=== PATIENT | female | born 1955 | race Caucasian/White ===

== ENCOUNTER → 2020-01-12 14:20 | Outpatient (BNVA) | payer OTHER, SELFPAY | PROVIDERS: Family Provider Family Medicine; Visit Provider Nurse Practitioner Family | DX: J06.9 Acute upper respiratory infection, unspecified (principal); R68.83 Chills (without fever); Z11.59 Encounter for screening for other viral diseases | CPT/HCPCS: 87635 ==

== ENCOUNTER 2021-02-19 14:22 | Emergency (ER) | payer MEDICARE, SELFPAY ==
[2021-02-19 15:43] VITALS: BP 115/75; PULSE 62; RESP 18; TEMP 36.8; O2SAT 96; BMI 29.2
--- NOTE | 2021-02-19 17:26 | XRR_ITS ---
PROCEDURE INFORMATION: Exam: XR Chest Exam date and time: 02/19/2021 5:26 PM Age: 65 years old Clinical indication: Cough; Additional info: Dyspnea TECHNIQUE: Imaging protocol: XR of the chest. Views: 1 view. COMPARISON: CR Chest 2 views* [id number] 02/11/2017 7:18 PM FINDINGS: Lungs: Unremarkable. No consolidation. Pleural spaces: Unremarkable. No pleural effusion. No pneumothorax. Heart/Mediastinum: Unremarkable. No cardiomegaly. Bones/joints: Unremarkable. XR/XR chest 1V portable [id number] IMPRESSION: No acute findings.
--- NOTE | 2021-02-19 19:04 | ED_ITS ---
HPI - URI/Sore Throat General: Chief Complaint: Upper Respiratory Infection Stated Complaint: TROUBLE BREATHING Time Seen by Provider: 02/19/21 18:11 History of Present Illness: HPI Narrative: 65-year-old female presents with shortness of breath and nonproductive cough for 3 days. Denies any chest pain. Denies lower extremity pain or swelling. Denies nausea or vomiting. Denies fevers or chills. Denies sick contacts. States that she does not have history of any respiratory problems or asthma or COPD. Review of Systems Narrative: - CONSTITUTIONAL: Denies weight loss, fever and chills. - HEENT: Denies changes in vision and hearing. - RESPIRATORY: As above - CV: Denies palpitations and CP. - GI: Denies abdominal pain, nausea, vomiting and diarrhea. - : Denies dysuria and urinary frequency. - MSK: Denies myalgia and joint pain. - SKIN: Denies rash and pruritus. - NEUROLOGICAL: Denies headache, weakness, numbness and syncope. - PSYCHIATRIC: Denies suicidal ideation Physical Exam Narrative: EXAM NARRATIVE: - GENERAL: Alert and oriented x 3. No acute distress. Well-nourished. - EYES: EOMI. Anicteric. - HENT: Atraumatic, no C-spine tenderness. Moist mucous membranes. No scleral icterus. No cervical lymphadenopathy. - LUNGS: Bilateral wheezing - CARDIOVASCULAR: Regular rate and rhythm. No murmur. No JVD. - ABDOMEN: Soft, non-tender and non-distended. Negative CVA tenderness bilaterally, no rebound or guarding, negative Mitchell sign. No palpable masses. - EXTREMITIES: No edema. Non-tender. - SKIN: No rashes or lesions. Warm. - NEUROLOGIC: No meningismus or focal neurological deficits. CN II-XII grossly intact. - PSYCHIATRIC: Cooperative. Appropriate mood and affect. Course Vital Signs: Vital signs: Vital Signs Temperature 98.2 F 02/19/21 15:43 Pulse Rate 78 02/19/21 21:28 Respiratory Rate 19 H 02/19/21 21:28 Blood Pressure 135/77 02/19/21 21:28 Pulse Oximetry 98 02/19/21 21:28 MDM - URI/Sore Throat MDM Narrative: Medical decision making narrative: 65-year-old presents with shortness of breath and cough. Physical exam does reveal some wheezing. EKG and troponin reticulocyte acute ischemia or other acute abnormality. D-dimer is elevated but CT does not reveal signs of PE. Otherwise lab work is unremarkable. She is hemodynamically stable afebrile nontoxic-appearing. Saturating well on room air. Patient is not a smoker and does not have a history of asthma. Clinically this is consistent with viral bronchitis. Prescription for prednisone albuterol provided. Incidentally there was also a pulmonary nodule for which outpatient follow-up was recommended this was communicated to the patient. At this time I believe patient would be safe for discharge and outpatient follow-up. Return precautions provided. Plan was reviewed with the patient who expressed understanding. Questions answered. Patient will follow up with PCP. Patient discharged in stable condition. Lab Data: Labs: Lab Results 02/19/21 02/19/21 02/19/21 19:20 19:20 19:30 WBC 5.8 10^3/uL 10^3/ uL (4.0-10.0) RBC 4.80 10^6/uL 10^6 /uL (4.1-5.3) Hgb 13.8 g/dL g/dL (11.5-15.3) Hct 44.2 % % (37.0-47.0) MCV 92.1 fl fl (81-99) MCH 28.8 pg pg (28.0-34.0) MCHC 31.2 g/dL g/dL (30.0-36.0) RDW 13.2 % % (12.1-15.1) Plt Count 253 10^3/cmm 10^3 /cmm (130-400) MPV 9.2 fL fL (7.4-10.4) Neut % (Auto) 72.8 % % Lymph % (Auto) 16.1 % % Hodgeman % (Auto) 7.5 % % Eos % (Auto) 2.9 % % Baso % (Auto) 0.5 % % Neut # (Auto) 4.24 10^3/uL 10^3 /uL (1.8-7.7) Lymph # (Auto) 0.9 10^3/uL 10^3/ uL (0.8-4.8) Hodgeman # (Auto) 0.4 10^3/uL 10^3/ uL (0.2-0.9) Eos # (Auto) 0.2 10^3/uL 10^3/ uL (0.0-0.8) Baso # (Auto) 0.0 10^3/uL 10^3/ uL (0.0-0.1) Nucleated RBC % (a uto) 0 % % Nucleated RBCs # 0.0 /100WBC /100W BC PT INR APTT D-Dimer Sodium Potassium Chloride Carbon Dioxide Anion Gap BUN Creatinine GFR Calculation Glucose Calculated Osmolal ity Calcium Total Bilirubin AST ALT Alkaline Phosphata se Troponin T Baselin e NT-Pro-B Natriuret Pep Total Protein Albumin Globulin Influenza Type A A g Negative (Negative) Influenza Type B A g Negative (Negative) SARS-CoV-2 Ag (Rap id) Negative (Negative) 02/19/21 02/19/21 02/19/21 19:30 19:30 19:30 WBC RBC Hgb Hct MCV MCH MCHC RDW Plt Count MPV Neut % (Auto) Lymph % (Auto) Hodgeman % (Auto) Eos % (Auto) Baso % (Auto) Neut # (Auto) Lymph # (Auto) Hodgeman # (Auto) Eos # (Auto) Baso # (Auto) Nucleated RBC % (a uto) Nucleated RBCs # PT 12.60 SECONDS SEC ONDS (12.1-14.9) INR 0.92 (0.8-1.2) APTT 30.3 SECONDS SECO NDS (23.9-36.7) D-Dimer 0.82 ug/mIFEU H u g/mIFEU (0-0.59) Sodium 140 mmol/L mmol/L (136-145) Potassium 4.1 mmol/L mmol/L (3.5-5.1) Chloride 102 mmol/L mmol/L (98-107) Carbon Dioxide 25 mmol/L mmol/L (22-29) Anion Gap 17.1 (5-19) BUN 9 mg/dL mg/dL (8-23) Creatinine 0.5 mg/dL mg/dL (0.5-0.9) GFR Calculation 123.8 mL/min mL/m in (90-130) Glucose 81 mg/dL mg/dL (65-115) Calculated Osmolal ity 288 mOsm/kg mOsm/ kg (285-295) Calcium 8.9 mg/dL mg/dL (8.5-10.5) Total Bilirubin 0.3 mg/dL mg/dL (0.15-1.2) AST 25 U/L U/L (0-32) ALT 23 U/L U/L (0-33) Alkaline Phosphata se 119 IU/L H IU/L (35-105) Troponin T Baselin e 6 ng/L ng/L (0-10) NT-Pro-B Natriuret Pep 75 pg/mL pg/mL (0-125) Total Protein 8.0 g/dL g/dL (6.6-8.7) Albumin 4.4 g/dL g/dL (3.5-5.2) Globulin 3.6 g/dL g/dL (1.3-4.6) Influenza Type A A g Influenza Type B A g SARS-CoV-2 Ag (Rap id) EKG Data^: EKG 1: Other EKG comments: Sinus bradycardia, rate of 56, incomplete right bundle branch block, no sign of acute ischemia or other acute abnormality. Coding Level of Care Code ED Supervisor Drying for Alpag Chayo
--- NOTE | 2021-02-19 19:06 | PC.NURSE ---
Report from FLORIAN Peralta
--- NOTE | 2021-02-19 19:08 | ECG_ITS ---
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 [employer]: : 1955 Requested By: Santana Handley Order Number: [id number] Reading MD: EMERSON WILLIAM Measurements Intervals [place] Rate: 56 P: 53 [place]: 184 QRS: -6 QRSD: 94 T: 25 QT: 432 QTc: 420 Interpretive Statements SINUS BRADYCARDIA INCOMPLETE RIGHT BUNDLE BRANCH BLOCK [90+ ms QRS DURATION, TERMINAL R IN V1/V2, 40+ ms S IN I/aVL/V4/V5/V6] NONSPECIFIC ST & T-WAVE ABNORMALITY No previous ECG available for comparison Electronically Signed On 02-20-2021 20:03:13 CDT by EMERSON WILLIAM [id number]
[2021-02-19 19:36] VITALS: BP 119/80; PULSE 66; RESP 19; O2SAT 94
[2021-02-19 19:51] LABS: Influenza A by IFA Negative (Negative); Influenza B by IFA Negative (Negative); SARS Covid-2 Antigen Negative (Negative)
[2021-02-19 19:53] LABS: Basophils % 0.5 %; Eosinophils # 0.2 10^3/uL (0.0-0.8); Eosinophils % 2.9 %; Hematocrit 44.2 % (37.0-47.0); Hemoglobin 13.8 g/dL (11.5-15.3); Lymphocytes # 0.9 10^3/uL (0.8-4.8); Lymphocytes % 16.1 %; Mean Corpuscular HGB Conc 31.2 g/dL (30.0-36.0); Mean Corpuscular Hemoglobin 28.8 pg (28.0-34.0); Mean Corpuscular Volume 92.1 fl (81-99); Mean Platelet Volume 9.2 fL (7.4-10.4); Monocytes # 0.4 10^3/uL (0.2-0.9); Monocytes % 7.5 %; Neutrophils # 4.24 10^3/uL (1.8-7.7); Neutrophils % 72.8 %; Nucleated Red Blood Cells % 0 %; Platelet Count 253 10^3/cmm (130-400); Red Cell Distribution Width 13.2 % (12.1-15.1); White Blood Count 5.8 10^3/uL (4.0-10.0)
[2021-02-19 20:02] LABS: INR 0.92 (0.8-1.2)
[2021-02-19 20:03] LABS: Partial Thromboplastin Time 30.3 SECONDS (23.9-36.7)
[2021-02-19 20:05] LABS: D Dimer 0.82 ug/mIFEU (0-0.59)
[2021-02-19 20:07] LABS: Troponin(5th) Baseline 6 ng/L (0-10)
--- NOTE | 2021-02-19 20:18 | CTR_ITS ---
PROCEDURE INFORMATION: Exam: CTA Chest With Contrast Exam date and time: 02/19/2021 8:18 PM Age: 65 years old Clinical indication: Shortness of breath; Additional info: Pe TECHNIQUE: Imaging protocol: Computed tomographic angiography of the chest with contrast. 3D rendering (Not supervised by radiologist): MIP and/or 3D reconstructed images were created by the technologist. Radiation optimization: All CT scans at this facility use at least one of these dose optimization techniques: automated exposure control; mA and/or kV adjustment per patient size (includes targeted exams where dose is matched to clinical indication); or iterative reconstruction. Contrast material: OMNI 350; Contrast volume: 65 ml; Contrast route: INTRAVENOUS (IV); COMPARISON: CR (CHEST, ) 02/19/2021 5:32 PM RADIATION DOSE METRICS: Total DLP (mGy-cm): 525.64 FINDINGS: Pulmonary arteries: There is no evidence of filling defects within the pulmonary arterial circulation to suggest pulmonary embolism. Aorta: There is no thoracic aortic aneurysm or dissection. Lungs: There is a solitary less than 6 mm sized subpleural pulmonary nodule in the right middle lobe on image number 3 of 6 of series 2 or 39 of series 3. For patients at low risk (minimal or absent history of smoking and of other known risk factors), recommend CT Chest at 6-12 months, then consider CT Chest at 18-24 months. For patients at high risk (history of smoking or of other known risk factors), recommend CT Chest at 6-12 months, then CT Chest at 18-24 months. (Reference: Jackson) Pleural spaces: Unremarkable. No pneumothorax. No pleural effusion. Heart: Unremarkable. No cardiomegaly. No pericardial effusion. Lymph nodes: There is mild bilateral hilar adenopathy with nodes measuring up to 10 x 12 mm and subcarinal adenopathy with nodes measuring up to 14 x 25 mm. There also some prominent paratracheal lymph nodes. 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 Soft tissues: Unremarkable. CT/CT angio chest PE protcl [id number] IMPRESSION: 1. Mild hilar and mediastinal adenopathy of uncertain significance 2. No evidence of pulmonary embolism. 3. No acute pulmonary infiltrate. 4. Solitary subpleural nodule in the right middle lobe. Follow-up according to Fleischner society guidelines suggested. REFERENCES: [place] Elkins et al. Guidelines for Management of Incidental Pulmonary Nodules Detected on CT Images: From the Fleischner Society 2017. Radiology. 2017;284(1):228-243. Radiation Dose CTDIVOL = (mGy): DLP = 525.64 (mGy-cm)
[2021-02-19 20:31] LABS: Alanine Aminotransferase 23 U/L (0-33); Albumin Level 4.4 g/dL (3.5-5.2); Alkaline Phosphatase 119 IU/L (35-105); Blood Urea Nitrogen 9 mg/dL (8-23); Calcium 8.9 mg/dL (8.5-10.5); Carbon Dioxide 25 mmol/L (22-29); Chloride 102 mmol/L (98-107); Creatinine Clr Calc Pharmacy 60.3363; Globulin 3.6 g/dL (1.3-4.6); Glomerular Filtration Rate 123.8 mL/min (90-130); Glucose 81 mg/dL (65-115); NT Pro B Type Natriuretic Pept 75 pg/mL (0-125); Osmolality Calculated 288 mOsm/kg (285-295); Sodium 140 mmol/L (136-145); Total Bilirubin 0.3 mg/dL (0.15-1.2)
[2021-02-19 20:40] LABS: Anion Gap 17.1 (5-19); Potassium 4.1 mmol/L (3.5-5.1)
[2021-02-19 20:41] LABS: Aspartate Amino Transferase 25 U/L (0-32)
[2021-02-19] MEDS: iohexol 350 mg/mL 100 mL Btl IV (21:02)
[2021-02-19] MEDS: ipratropium-albuterol 3 mL Neb INHALATION (21:18)
[2021-02-19 21:20] VITALS: PULSE 89; RESP 18; O2SAT 94
[2021-02-19 21:28] VITALS: BP 135/77; PULSE 78; RESP 19; O2SAT 98
--- NOTE | 2021-02-19 21:30 | PC.NURSE ---
Assisted onto bedside toilet. Able to ambulate from the bed with assistance, needs assistance due to weakness. AOx4. Urine sent to lab.
[2021-02-19 22:00] VITALS: BP 139/96; PULSE 84; RESP 20; O2SAT 97
[2021-02-19 22:07] LABS: Troponin 5 2HR Delta 0 ABS# (0-10)
== END 2021-02-19 22:01 | disposition home or self-care (01) ==
PROVIDERS: Nurse Practitioner Family; Emergency Provider Emergency Medicine
DX: R06.02 Shortness of breath (principal); R05 Cough; Z20.822 Contact with and (suspected) exposure to COVID-19
CPT/HCPCS: 71045; 71275; 80053; 83880; 84484; 85025; 85378; 85610; 85730; 87426; 87804; 93005; 94640; 96374; 99284; J2930; Q9967

== ENCOUNTER 2024-09-26 01:34 | Emergency (ER) | payer MEDICARE, SELFPAY ==
[2024-09-26 01:51] VITALS: BP 125/80; PULSE 79; RESP 20; TEMP 37.1; O2SAT 94; BMI 31.2
[2024-09-26] MEDS: sodium chloride 0.9% 1,000 ML 999 ML IV (02:57)
[2024-09-26 03:00] VITALS: BP 110/58; PULSE 78; RESP 16; O2SAT 90
[2024-09-26 03:09] LABS: Basophils % 0.1 %; Hematocrit 39.5 % (36-47); Lymphocytes # 0.4 10^3/uL (0.8-4.8); Lymphocytes % 4.5 %; Mean Corpuscular HGB Conc 32.2 g/dL (30-55); Mean Corpuscular Hemoglobin 28.4 pg (27-33); Mean Corpuscular Volume 88.4 fl (85-98); Mean Platelet Volume 8.2 fL (7.4-10.4); Monocytes # 0.5 10^3/uL (0.2-0.9); Monocytes % 4.8 %; Neutrophils # 8.77 10^3/uL (1.8-7.7); Neutrophils % 90.3 %; Nucleated Red Blood Cells % 0 %; Platelet Count 239 10^3/cmm (157-399); Red Blood Count 4.47 10^6/uL (3.85-5.65); Red Cell Distribution Width 13.4 % (12.1-15.1); White Blood Count 9.72 10^3/uL (3.29-11.43)
--- NOTE | 2024-09-26 03:10 | ED_ITS ---
HPI - Nausea/Vomiting/Diarrhea 2 General: Chief complaint: Nausea/Vomiting/Diarrhea Stated complaint: n/v weak Time Seen by Provider: 09/26/24 03:07 History of Present Illness: 69-year-old female who states that she h as had diarrhea for the past month. She completed a course of antibiotics without improvement. She has been nauseated. She complains of a headache most of the day yesterday, and was not able to get out of bed. She still has a headache. She denies fever. She has not vomited. No blood in the stool. Mild belly pain. Generalized body aches. Related Data Previous Rx's ?Medication ?Instructions ?Recorded albuterol sulfate 90 mcg/actuation 1 inh inhalation Q6 H PRN shortness 02/19/21 aerosol inhaler of breath or wheezing #8.5 g yeny ondansetron 4 mg disintegrating 4 mg PO Q6H PRN nausea and 09/26/24 tablet vomiting #14 tabs Allergies Allergy/AdvReac Type Severity Reaction Status Date / Time codeine Allergy ALGY-Anaphy Verified 01/12/20 11:05 laxis Physical Exam 2 Const: COMMON NORMALS: alert GENERAL APPEARANCE: cooperative and ill appearing (Mildly); not frail appearing ORIENTATION/CONSCIOUSNESS: Yes oriented to person, Yes oriented to place and Yes oriented to time HENMT: COMMON NORMALS: normocephalic, atraumatic and Normal external nose present HEAD & SCALP: normocephalic and atraumatic FACE & SINUS: normal facial exam and face symmetric NOSE: Normal external nose present Eye: COMMON NORMALS: Equal, round and reactive pupils present and EOMs intact bilaterally PUPIL: Yes Equal, round and reactive pupils present Neck/C-Spine: GENERAL: Yes trachea midline Chest: CHEST: Yes Symmetrical chest wall rise Resp: COMMON NORMALS: normal respiratory effort, No retractions, No use of accessory muscles and clear to auscultation bilaterally AUSCULTATION: clear to auscultation bilaterally Cardio: COMMON NORMALS: regular rate and regular rhythm RATE: regular rate RHYTHM: regular rhythm GI: COMMON NORMALS: Normal to inspection, nondistended, normoactive bowel sounds present Extremity: COMMON NORMALS: no pedal edema Neuro: KT COMA SCALE: document GCS findings Clyo coma scale eye opening: Spontaneous Kt coma scale verbal response: Orientated Kt coma scale motor response: Obey commands Clyo coma scale total score: 15 COMMON NORMALS: CN's II-XII intact bilaterally SENSORIUM/ORIENTATION: Yes alert, Yes oriented to person, Yes oriented to place and Yes oriented to time C OORDINATION/BALANCE: [id number] test normal SPEECH: speech normal S ENSORY EXAM: Yes extremities (intact) MOTOR EXAM: Pronator motor function not present COORDINATION: [id number] test normal Psych: COMMON NORMALS: speech normal SPEECH: Yes normal speech Skin: COMMON NORMALS: no rashes or lesions noted GENERAL SKIN EXAM: no rashes or lesions noted Course 2 Vital Signs: Vital signs: Vital Signs Temperature 98.7 F 09/26/24 01:51 Pulse Rate 72 09/26/24 04:33 Respiratory Rate 18 09/26/24 03:43 Blood Pressure 109/69 09/26/24 04:33 Pulse Oximetry 95 09/26/24 04:33 Oxygen Delivery Me thod Nasal Cannula 09/26/24 04:33 MDM - Nausea/Vomiting/Diarrhea Medical Decision Making Vitals are normal. CBC is normal. BMP is not remarkable. Lactic acid is 1.2. CRP is mildly elevated at 28.4. Urinalysis is negative. CT is nonacute. She has been up and walked in the ER. She still complaining of some nausea. She is given Haldol for this. She will be discharged on scheduled Zofran. Close outpatient follow-up. Return for worsening symptoms. Lab Data 09/26/24 02:54 09/26/24 02:54 Radiology Impressions Abdomen/Pelvis CT 09/26/24 03:16 IMPRESSION: 1. No acute abdominopelvic abnormality. 2. Right middle lobe pulmonary nodule. For patients at low risk (minimal or absent history of smoking and of other known risk factors), no routine follow-up is indicated. For patients at high risk (history of smoking or of other known risk factors), consider optional CT Chest at 12 months. (Reference: Jackson) COMMENTS: Consistent with the [place]'s Incidental Findings Committee white paper (J Am Donna Radiol 2018): Any incidental renal lesion less than 1 cm or classified as too small to characterize, or any incidental cystic renal lesion characterized as simple-appearing, is likely benign. No follow-up imaging is recommended for these lesions per consensus recommendations based on imaging criteria. REFERENCES: [place] Elkins et al. Guidelines for Management of Incidental Pulmonary Nodules Detected on CT Images: From the Fleischner Society 2017. Radiology. 2017;284(1):228-243. Head CT 09/26/24 03:16 IMPRESSION: No acute intracranial findings. Laboratory Results WBC 9.72 10^3/uL (3.29-11.43) 09/26/24 02:54 RBC 4.47 10^6/uL (3.85-5.65) 09/26/24 02:54 Hgb 12.70 g/dL (11.27-16.99) 09/26/24 02:54 Hct 39.5 % (36-47) 09/26/24 02:54 MCV 88.4 fl (85-98) 09/26/24 02:54 MCH 28.4 pg (27-33) 09/26/24 02:54 MCHC 32.2 g/dL (30-55) 09/26/24 02:54 RDW 13.4 % (12.1-15.1) 09/26/24 02:54 Plt Count 239 10^3/cmm (157-399) 09/26/24 02:54 MPV 8.2 fL (7.4-10.4) 09/26/24 02:54 Neut % (Auto) 90.3 % 09/26/24 02:54 Lymph % (Auto) 4.5 % 09/26/24 02:54 Hawkins % (Auto) 4.8 % 09/26/24 02:54 Eos % (Auto) 0.0 % 09/26/24 02:54 Baso % (Auto) 0.1 % 09/26/24 02:54 Neut # (Auto) 8.77 10^3/uL (1.8-7.7) H 09/26/24 02:54 Lymph # (Auto) 0.4 10^3/uL (0.8-4.8) L 09/26/24 02:54 Hawkins # (Auto) 0.5 10^3/uL (0.2-0.9) 09/26/24 02:54 Eos # (Auto) 0.0 10^3/uL (0.0-0.8) 09/26/24 02:54 Baso # (Auto) 0.0 10^3/uL (0.0-0.1) 09/26/24 02:54 Nucleated RBC % (auto) 0 % 09/26/24 02:54 Nucleated RBCs # 0.0 /100WBC 09/26/24 02:54 Sodium 136 mmol/L (136-145) 09/26/24 02:54 Potassium 3.7 mmol/L (3.5-5.1) 09/26/24 02:54 Chloride 101 mmol/L (98-107) 09/26/24 02:54 Carbon Dioxide 21 mmol/L (22-29) L 09/26/24 02:54 Anion Gap 17.7 (5-19) 09/26/24 02:54 BUN 11 mg/dL (8-23) 09/26/24 02:54 Creatinine 0.7 mg/dL (0.5-0.9) 09/26/24 02:54 GFR Calculation 83.0 mL/min (90-130) L 09/26/24 02:54 Glucose 131 mg/dL (65-115) H 09/26/24 02:54 Calculated Osmolality 283 mOsm/kg (285-295) L 09/26/24 02:54 Lactic Acid 1.2 mmol/L (0.5-2.2) 09/26/24 02:54 Calcium 8.7 mg/dL (8.5-10.5) 09/26/24 02:54 Total Bilirubin 0.4 mg/dL (0.15-1.2) 09/26/24 02:54 AST 25 U/L (0-32) 09/26/24 02:54 ALT 25 U/L (0-33) 09/26/24 02:54 Alkaline Phosphatase 120 U/L (35-105) H 09/26/24 02:54 C-Reactive Protein 28.4 mg/L (0.0-4.9) H 09/26/24 02:54 Total Protein 7.3 g/dL (6.6-8.7) 09/26/24 02:54 Albumin 3.9 g/dL (3.5-5.2) 09/26/24 02:54 Globulin 3.4 g/dL (1.3-4.6) 09/26/24 02:54 Lipase 20 U/L (13-60) 09/26/24 02:54 Urine RBC 0-2 /hpf (0-2) 09/26/24 04:44 Urine WBC 0-5 /hpf (0-5) 09/26/24 04:44 Ur Squamous Epith Cells 0-5 /hpf (0-5) 09/26/24 04:44 Amorphous Sediment Not Reportable 09/26/24 04:44 Urine Bacteria None seen /hpf (NONE) 09/26/24 04:44 Hyaline Casts 0.81 /lpf 09/26/24 04:44 All radiology interpretation(s) finalized by discharge Discharge Plan Discharge Patient Disposition: Home Clinical Impression: Gastroenteritis Condition: Stable Prescriptions: New ondansetron 4 mg tablet,disintegrating 4 mg PO Q6H PRN (Reason: nausea and vomiting) Qty: 14 0RF No Action albuterol sulfate 90 mcg/actuation HFA aerosol inhaler 1 inh inhalation Q6H PRN (Reason: shortness of breath or wheezing) Qty: 8.5 0RF Discharge Orders: Discharge ED (Routine); Ordered 09/26/24 Ordered By: Oc Francis Patient Instructions: Diarrhea - Adult, Dehydration (ED), Opioid Safety, Pain Management Activity Restrictions/Additional Instructions: Take the nausea medicine as scheduled every 4 hours while awake for the first 48 hours. You may take it as you needed after that. Return for worsening pain, fever greater than 100, vomiting liquids, other concerning symptoms. See your doctor this week. Call Friday for an appointment. Print Language: [place] Coding Level of Care Code ED Concierge Manager for Radha Domingo
[2024-09-26] MEDS: ondansetron 2 mg/ML SDV 2 mL 4 MG IVP (03:13)
[2024-09-26] MEDS: ketorolac 30 mg/mL INJ IVP (03:13)
--- NOTE | 2024-09-26 03:16 | CTR_ITS ---
PROCEDURE INFORMATION: Exam: CT Abdomen And Pelvis With Contrast Exam date and time: 09/26/2024 3:58 AM Age: 69 years old Clinical indication: Nausea and vomiting and other: Diarrhea TECHNIQUE: Imaging protocol: Computed tomography of the abdomen and pelvis with contrast. Radiation optimization: All CT scans at this facility use at least one of these dose optimization techniques: automated exposure control; mA and/or kV adjustment per patient size (includes targeted exams where dose is matched to clinical indication); or iterative reconstruction. Contrast material: OMNI 350; Contrast volume: 100 ml; Contrast route: INTRAVENOUS (IV); COMPARISON: CT angio chest PE protcl [id number] 02/19/2021 8:43 PM RADIATION DOSE METRICS: Total DLP (mGy-cm): 514.45 FINDINGS: Lungs: 4 x 3 mm right middle lobe pulmonary nodule (series 4, image 40). Liver: Unremarkable. Gallbladder and biliary ducts: Unremarkable. Pancreas: Unremarkable. Spleen: Unremarkable. Adrenal glands: Unremarkable. Kidneys and ureters: Bilateral simple cortical renal cysts. No hydronephrosis. Stomach and bowel: No mechanical obstruction. No mucosal thickening. Appendix: Appendix not definitely seen. No right lower quadrant inflammation identified. Intraperitoneal space: No free air or free fluid. Vasculature: Unremarkable. Lymph nodes: Mild reactive retroperitoneal lymph nodes. Urinary bladder: Unremarkable. Reproductive: Hysterectomy. Bones/joints: Grade 1 anterolisthesis of L4 on L5. Unremarkable. Soft tissues: Unremarkable. CT/CT abdomen pelvis w con* [id number] IMPRESSION: 1. No acute abdominopelvic abnormality. 2. Right middle lobe pulmonary nodule. For patients at low risk (minimal or absent history of smoking and of other known risk factors), no routine follow-up is indicated. For patients at high risk (history of smoking or of other known risk factors), consider optional CT Chest at 12 months. (Reference: Jackson) COMMENTS: Consistent with the [employer] [employer]'s Incidental Findings Committee white paper (J Am Donna Radiol 2018): Any incidental renal lesion less than 1 cm or classified as too small to characterize, or any incidental cystic renal lesion characterized as simple-appearing, is likely benign. No follow-up imaging is recommended for these lesions per consensus recommendations based on imaging criteria. REFERENCES: [place] Elkins et al. Guidelines for Management of Incidental Pulmonary Nodules Detected on CT Images: From the Fleischner Society 2017. Radiology. 2017;284(1):228-243.
--- NOTE | 2024-09-26 03:16 | CTR_ITS ---
PROCEDURE INFORMATION: Exam: CT Head Without Contrast Exam date and time: 09/26/2024 3:55 AM Age: 69 years old Clinical indication: Pain; Dizziness; Headache TECHNIQUE: Imaging protocol: Computed tomography of the head without contrast. Radiation optimization: All CT scans at this facility use at least one of these dose optimization techniques: automated exposure control; mA and/or kV adjustment per patient size (includes targeted exams where dose is matched to clinical indication); or iterative reconstruction. COMPARISON: No relevant prior studies available. RADIATION DOSE METRICS: Total DLP (mGy-cm): 1199.83 FINDINGS: Brain: No hemorrhage. No mass effect or midline shift. No significant white matter disease. Cerebral ventricles: No ventriculomegaly. Paranasal sinuses: Visualized sinuses are unremarkable. No fluid levels. Mastoid air cells: Visualized mastoid air cells are well aerated. Bones: Unremarkable. No acute fracture. Soft tissues: Unremarkable. CT/CT head wo con* [id number] IMPRESSION: No acute intracranial findings.
[2024-09-26 03:26] LABS: Alanine Aminotransferase 25 U/L (0-33); Albumin Level 3.9 g/dL (3.5-5.2); Alkaline Phosphatase 120 U/L (35-105); Anion Gap 17.7 (5-19); Aspartate Amino Transferase 25 U/L (0-32); Blood Urea Nitrogen 11 mg/dL (8-23); C Reactive Protein 28.4 mg/L (0.0-4.9); Calcium 8.7 mg/dL (8.5-10.5); Carbon Dioxide 21 mmol/L (22-29); Chloride 101 mmol/L (98-107); Creatinine Clr Calc Pharmacy 59.0194; Globulin 3.4 g/dL (1.3-4.6); Glucose 131 mg/dL (65-115); Lipase 20 U/L (13-60); Osmolality Calculated 283 mOsm/kg (285-295); Potassium 3.7 mmol/L (3.5-5.1); Sodium 136 mmol/L (136-145); Total Bilirubin 0.4 mg/dL (0.15-1.2); Total Protein 7.3 g/dL (6.6-8.7)
[2024-09-26 03:27] LABS: Lactic Sepsis W/Reflex 1.2 mmol/L (0.5-2.2)
[2024-09-26 03:43] VITALS: RESP 18; O2SAT 92
[2024-09-26] MEDS: fentaNYL 50 mcg/mL INJ 2mL IVP (03:43)
[2024-09-26] MEDS: iohexol 350 mg/mL 500 mL Btl (per mL) IV (04:11)
[2024-09-26 04:33] VITALS: BP 109/69; PULSE 72; O2SAT 95
[2024-09-26 05:01] LABS: Bacteria Urine None Seen /hpf; Hyaline Casts Urine 0.81 /lpf; RBC Urine 0-2 /hpf (0-2); Squamous Epithelial Cell Urine 0-5 /hpf (0-5); WBC Urine 0-5 /hpf (0-5)
[2024-09-26 05:04] LABS: Add Urine Microscopic? YES; Bilirubin Urine Negative (Negative); Blood Urine Trace (Negative); Glucose Urine UA Negative (Normal); Ketones Urine 1+ (Negative); Leukocyte Esterase Urine Negative (Negative); Nitrate Urine Negative (Negative); Protein Urine Negative (Negative); Specific Gravity, Urine 1.036 (1.005-1.030); Urine Appearance Clear (CLEAR); Urine Color Yellow (Yellow); Urobilinogen Urine 0.2 mg/dL (Negative)
[2024-09-26] MEDS: haloperidol inj 5 mg/mL INJ 1 mL 3 MG IVP (05:05)
[2024-09-26 05:09] VITALS: BP 115/68; PULSE 73; RESP 17; O2SAT 93
[2024-09-26 05:34] VITALS: BP 115/68; PULSE 73; RESP 18; O2SAT 91
== END 2024-09-26 05:35 | disposition home or self-care (01) ==
PROVIDERS: Emergency Provider Emergency Medicine
DX: K52.9 Noninfective gastroenteritis and colitis, unspecified (principal)
CPT/HCPCS: 36415; 70450; 74177; 80053; 81001; 83605; 83690; 85025; 86140; 96361; 96374; 96375; 99285; J1630; J1885; J2405; J3010; J7030

== ENCOUNTER 2025-02-06 22:46 | Emergency (ER) | payer MEDICARE, SELFPAY ==
--- OUTSIDE RECORDS SUMMARY | 2025-02-02 11:20 | XMS_ITS | Encounter Summary ---
Author Organization [facility] Address [address] [place] [address] Care Team Providers Care Department Head Name Role Phone Kamran Chavira MD Primary Care Provider [phone] Reason for Visit * Reason Comments Chest Congestion Cough Phelps when she cough Generalized Body Aches Has had symptoms for a week Shortness of Breath Encounter Details Date Type Department Care Team (Late st Contact Info) Description 02/02/2025 11:20 AM CDT Office Visit [facility] Medicine [address] [phone] Amirah Thompson [facility] [address] [place] [phone] Upper respiratory tract infection, unspecified type (Primary Dx); Non-seasonal allergic rhinitis due to other allergic trigger; Encounter for colorectal cancer screening Social History Tobacco Use Types Packs/Day Years Used Date Smoking Tobacco: Never Passive Smoke Exposure: Never Smokeless Tobacco: Never Alcohol Use Standard Drinks/Week Comments No 0 (1 standard drink = 0.6 oz pur e alcohol) Financial Resource Strain Answer Date R ecorded How hard is it for you to pa y for the very basics like food, housing, medical care, and heating? Not hard at all 10/05/2021 Food Insecurity Answer Date Recorded In the past 12 months, have you worried that your food would run out before you had money to buy more? Never true 10/05/2021 In the past 12 months, did y ou run out of food and didn't have money to buy more? Never true 10/05/2021 Transportation Needs Answer Date Record ed In the past 12 months, has l ack of transportation kept you from medical appointments or from getting medications? 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 Gender Identity Not on file Sexual Orientation Not on file documented as of this encounter Last Filed Vital Signs Vital Sign Reading Time Taken Comments Blood Pressure 120/78 02/02/2025 11:23 AM CDT Pulse 73 02/02/2025 11:23 AM CDT Temperature 36.6 C (97.8 F) 02/02/2025 11:23 AM CDT Respiratory Rate 19 02/02/2025 11:23 AM CDT Oxygen Saturation 92% 02/02/2025 11:23 AM CDT Inhaled Oxygen Concentration - - Weight 69.5 kg (153 lb 3.2 oz) 02/02/2025 11:23 AM CDT Height 152.4 cm (5') 02/02/2025 11:23 AM CDT Body Mass Index 29.92 02/02/2025 11:23 AM CDT documented in this encounter Patient Instructions * Attachments The following attachments cannot be sent through Care Everywhere. * URI (Upper Respiratory Infection) (Kittitian) documented in this encounter Progress Notes * Amirah Thompson, JASON - 02/02/2025 11:30 AM CDT Subjective Chest Congestion, Cough (Phelps when she cough), Generalized Body Aches (Has had symptoms for a week), and Shortness of Breath History of Present Illness The patient is a 69-year-old female who presents for a same-day visit with complaints of cough, chest congestion, shortness of breath, and body aches, which have been present for 1 week. She suspects she has influenza, although she has not been tested. She reports no fever or chills but mentions feeling cold this morning. She is inquiring about the possibility of receiving an influenza vaccine. Her was recently hospitalized with pneumonia and is currently on antibiotics. They attended a large family gathering where several members fell ill afterward. She has no history of smoking but lives with smokers. She does not have COPD or asthma. She recallsa previous ER visit where she was advised to quit smoking, even though she does not smoke. She reports no ear pain. She has a history of allergies and takes Zyrtec nightly. She also uses saline nasalrinses. She experiences a burning sensation in her chest and is concerned about the possibility of asthma. She has experienced episodes of mucus plugs obstructing her airway. She uses albuterol as needed for shortness of breath. She frequently experiences diarrhea and stomach upset. She maintains a diet of whole wheat or 7 to 15 grain bread and used to consume raisin bran regularly. Diet: Whole wheat or 7 to 15 grain bread, used to consume raisin bran regularly Tobacco: Lives with smokers Living Condition: Lives with smokers Review of Systems: All systems reviewed and negative otherwise as per HPI. Past Medical History: Diagnosis Date Bipolar I disorder, most recent episode (or current) depressed, severe, without mention of psychotic behavior (CMS/HCC) Borderline personality disorder (CMS/HCC) Carcinoma in situ Dementia (CMS/HCC) Depression Headache(784.0) Osteoarthritis Social History Socioeconomic History Marital status: Spouse name: Not on file Number of children: Not on file Years of education: Not on file Highest education level: Not on file Occupational History Not on file Tobacco Use Smoking status: Never Passive exposure: Never Smokeless tobacco: Never Vaping Use Vaping status: Never Used Substance and Sexual Activity Alcohol use: No Drug use: Never Sexual activity: Not Currently Partners: Male Comment: HYST Other Topics Concern Not on file Social History Narrative Not on file Social Drivers of Health Food Insecurity: No Food Insecurity (10/05/2021) Food Insecurity Worried About Running Out of Food in the Last Year: Never true Ran Out of Food in the Last Year: Never true Transportation Needs: Unknown (10/05/2021) Transportation Needs Lack of Transportation (Medical): No Lack of Transportation (Non-Medical): Not on file Feeling Safe: Not on file Housing Stability: Not on file Objective Blood pressure 120/78, pulse 73, temperature 97.8 ??F (36.6 ??C), temperature source Temporal, resp. rate 19, height 5' (1.524 m), weight 69.5 kg (153 lb 3.2 oz), SpO2 92%. Physical Exam Ears: Significant cerumen impaction noted bilaterally. Respiratory: Clear to auscultation, no wheezing, rales or rhonchi. Cardiovascular: Regular rate and rhythm, no murmurs, rubs, or gallops. Physical Exam Results Procedures Assessment & Plan 1. Upper respiratory tract infection, unspecified type (Primary) - Symptoms include cough, chest congestion, shortness of breath, and body aches for approximately one week. - Heart and lung examinations are normal. There is no evidence of COPD or asthma. Symptoms do not suggest the need for a steroid today. - A prescription for azithromycin (Z-Donn) for 5 days has been sent to the pharmacy. The patient is advised to use honey as a natural cough suppressant and perform warm salt water gargles. Adequate hydration is recommended to thin secretions. Mucinex can be continued to help with mucus clearance. Ifthere is no improvement after 48 hours of antibiotic therapy, she should inform the clinic. Discussed with patient if no improvement or worsening of symptoms; return to clinic. Patient verbalized understanding and agrees with plan. - azithromycin (ZITHROMAX) 500 mg tablet; Take 1 Tablet (500 mg) by mouth daily for 1 day, THEN 0.5Tablets (250 mg) daily for 4 days. Dispense: 3 Tablet; Refill: 0 2. Non-seasonal allergic rhinitis due to other allergic trigger - The patient reports having allergies and uses Zyrtec. - A prescription for Flonase nasal spray has been provided to help with congestion and allergies. Instructions on proper use were given, including angling the spray towards the cheek. - fluticasone propionate (FLONASE) 50 mcg/spray Topmost, Suspension nasal inhaler; Administer 2 Sprays in each nostril daily. Dispense: 16 Gram; Refill: 5 3. Encounter for colorectal cancer screening Screening ordered. - COLON CANCER SCREEN, STOOL DNA; Future - COLON CANCER SCREEN, STOOL DNA Follow up: 1-3m with Dr. Chavira for CCV The author of this note, patient (or authorized branch customer service representative), and all other persons present consent to the audio recording of this visit for charting documentation purposes. This note was automatically generated by a Generative AI technology ([employer]), reviewed, edited, and finalized by JASON Williamson. documented in this encounter Plan of Treatment Scheduled Orders Name Type Priority Associated Diagnoses Orde r Schedule COLON CANCER SCREEN, STOOL DNA Lab Routine Encounter for colorectal cancer screening Expected: 02/02/2025, Expires: 03/30/2025 documented as of this encounter Visit Diagnoses Diagnosis Upper respiratory tract infection, unspecified type- Primary Non-seasonal allergic rhinitis due to other allergic trigger Encounter for colorectal cancer screening Special screening for malignant neoplasms, colon documented in this encounter Additional Health Concerns Assessment Noted Time PHQ-9 Depression Total Score: 3 04/12/20 24 1:41 PM 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
--- OUTSIDE RECORDS SUMMARY | 2025-02-06 22:56 | XMS_ITS | Encounter Summary ---
Author Organization [facility] Address [address] [place] [address] Care Team Providers Care Revenue Director Name Role Phone Cj Almanza MD Primary Care Provider Encounter Details Date Type Department Care Team (Latest Contact Info) Description 08/20/2005 Outpatient Historical [facility] [email or web address] [facility] 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
--- OUTSIDE RECORDS SUMMARY | 2025-02-06 22:56 | XMS_ITS | Encounter Summary ---
Author Organization [facility] Address [address] [place] [address] Care Team Providers Care Frame Pulley Mortising Machine Operator Name Role Phone Kamran Chavira MD Primary Care Provider [phone] Reason for Visit * Reason Onset Date Comments Clinical Consult Before Scheduling Cough 02/02/2025 Arms Shortness of Breath 02/02/2025 Chest Pain (Angina) 02/02/2025 Numbness 02/02/2025 Encounter Details Date Type Department Care Team (Late st Contact Info) Description 02/02/[address] 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 Patient states that she is having shortness of air,coughing, chest pressure , sinus pressure, drainage, and body aches, patient having cold spells, denies fever at this time. Patient scheduled at this time with provider. Patient appointment is at 1120. Routing to provider at this time for review . Geni Otto LPN, 02/02/2025 9:29 AM * Telephone Encounter - Safia Laws - 02/02/2025 9:17 AM CDT Copied from [facility] #[id number]. Topic: Symptomatic Care >> Feb 02, 2025 9:11 AM Safia Randolph wrote: Has this patient seen any provider (current or former) at the requested clinic in the past? Yes, Select the appropriate age range and symptom Patient has symptoms and is seeking care. Caller Name: Glendy Callback Number: [phone] Call Notes: Patient said she has the flu with SOB, chest hurts, cough with phlegm, runny nose and sore throat. Age Range/Symptom: Adult 18+ - Upper respiratory symptoms (cold, cough, COVID, fever, flu, hay fever, sinus problems, seasonal allergies Does patient have any of the following other urgent symptoms: Breathing difficulty, any, OR Shortness of Breath (does not include congestion) Is there an encounter open? No Transferred to PCElodia Wooten answered call. Yes, Remind caller to have the patient [facility]when [facility]. 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
--- OUTSIDE RECORDS SUMMARY | 2025-02-06 22:56 | XMS_ITS | Clinical Summary ---
Author Organization [facility] Address [address] [place] [address] Care Team Providers Care Stockbroker Name Role Phone Cj Almanza MD Primary Care Provider [phone] Allergies Active Allergy Reactions Criticality Noted Date Comments Codeine Anaphylaxis High 07/02/2010 Topiramate Hallucination Low 02/24/2018 Medications Cetirizine 10 mg Oral Cap Take 1 Cap by mouth daily. Active atenoloL (TENORMIN) 25 mg tabletIndicatio ns:Action tremor TAKE 1 TABLET BY MOUTH TWICE DAILY FOR TREMORS 180 Tablet 1 09/28/2020 Active atorvastatin (LIPITOR) 20 mg tablet Take 1 Tablet (20 mg) by mouth daily. 90 Tablet 3 09/28/2020 Active venlafaxine (Effexor XR) 37.5 mg Extended Release 24 hour capsuleIndicati ons:Bipolar affective disorder, currently depressed, moderate (CMS/HCC) Take 1 Capsule (37.5 mg) by mouth daily. Note change of form. 90 Capsule 10/04/2020 Active ALPRAZolam (XANAX) 0.25 mg tabletIndicatio ns:Bipolar affective disorder, current episode hypomanic (CMS/HCC) TAKE 1 TABLET BY MOUTH THREE TIMES DAILY NEEDED FOR ANXIETY 180 Tablet 1 11/02/2020 Active Active Problems Problem Noted Date Diagnosed Date Mixed hyperlipidemia 09/16/2020 Generalized anxiety disorder 08/03/2020 Migraine 09/24/2011 Bipolar affective disorder, currently depressed, moderate 07/02/2010 Action tremor 07/02/2010 Immunizations Immunization Administration Dates Next Due (CHARI) COVID-19 VACCINE - EMERGENCY USE AUTHORIZATION, AD26,COV2S(PF) 0.5 ML IM SUSP 09/29/2020 INFLUENZA VACCINE QUADRIVALE NT 3 YR UP PF IM 02/25/2020 Influenza Seasonal Unspecifi ed Formulation IM 03/11/2019,03/18/2018,06/22/2013,2012,04/09/2011 Influenza Vaccine High Dose 65+ Yrs IM 03/16/2019 PREVNAR (PCV13) pneumococcal 13-valent conjugate Vaccine 03/16/2019 Family History Medical History Relation Name Comments Cancer Father Lung Cancer Father Stroke Maternal Grandfather Breast Cancer Mother 70's Other Other dementia/alzthe mimers in aunts Relation Name Status Comments Father Maternal Grandfather Mother Alive Other Social History Tobacco Use Types Packs/Day Years Used Date Smoking Tobacco: Never Smokeless Tobacco: Never Tobacco Cessation:Counseling Given: No Alcohol Use Standard Drinks/Week Comments No 0 (1 standard drink = 0.6 oz pur e alcohol) Financial Resource Strain Answer Date R ecorded How hard is it for you to pa y for the very basics like food, housing, medical care, and heating? Not very hard 06/30/2020 Transportation Needs Answer Date Record ed In the past 12 months, has l ack of transportation kept you from medical appointments or from getting medications? 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 Gender Identity Not on file Sexual Orientation Not on file Last Filed Vital Signs Vital Sign Reading Time Taken Comments Blood Pressure 116/74 10/04/2020 11:13 AM CDT Pulse 84 10/04/2020 11:13 AM CDT Temperature 36.5 C (97.7 F) 10/04/2020 11:13 AM CDT Respiratory Rate 18 10/04/2020 11:13 AM CDT Oxygen Saturation 99% 10/04/2020 11:13 AM CDT Room Air Inhaled Oxygen Concentration - - Weight 71 kg (156 lb 9.6 oz) 10/04/2020 11:13 AM CDT Height 152.4 cm (5') 10/04/2020 11:13 AM CDT Body Mass Index 30.58 10/04/2020 11:13 AM CDT Plan of Treatment Health Maintenance Due Date Last Done Comments Pre-Diabetes and Diabetes Screening 1955 DTAP/TDAP/TD VACCINES (1 - Tdap) 1974 FIT-DNA Q 3 years 2000 FIT/FOBT Q 1 year 2000 Flex Sig/CT Colonography Q 5 years 2000 ZOSTER VACCINE (1 of 2) 2005 COLORECTAL SCREENING 11/21/2015 11/20/2005 Colorectal Cancer Screening 11/21/2015 PNEUMOCOCCAL VACCINE 50+ YEA RS (2 of 2 - PCV20 or PCV21) 03/16/2020 03/16/2019 OSTEOPOROSIS SCREENING 2020 BREAST CANCER SCREENING 11/10/2021 11/11/19 21, 10/04/2020, 10/04/2020 [place] Preventative Visit/Annual Wellness Visit 05/26/2024 09/05/2023, 03/05/2023, 02/03/2023, Additional history exists INFLUENZA VACCINE (#1) 2024 , 03/16/2019, 03/11/2019, Additional history exists COVID-19 Vaccine (2 - 2024-2 6 season) 2025 09/29/2020 RSV VACCINE (60+ or ) (1 - 1-dose 75+ series) 2030 Procedures Procedure Name Priority Date/Time Associated Diagnosis Comments MAMMO DIAG UNI LEFT 3D DANIKA W OR WO CAD Routine 11/10/2020 1:00 PM CDT Inconclusive mammography from Last 3 Months or Most Recently Relevant to Health Maintenance Results * (ABNORMAL) MAMMO DIAG UNI LEFT 3D DANIKA W OR WO CAD (11/10/2020 1:00 PM CDT) Anatomical Region Laterality Modality Breast Left Mammography 11/10/2020 1:00 PM CDT Narrative 11/10/2020 3:20 PM CDT Left diagnostic mammogram 3-D spot danika CC imaging with axillary tail 3-D danika imaging and mediolateral digital image and left breast ultrasound: 3-D spot tomosynthesis CC imaging is presented with 3-D danika axillary tail imaging and mediolateral digital image, to evaluate mass medial subareolar on the left as well as suspected abnormal left axillary lymph nodes, on recent screening mammogram 10/04/2020. We have no previous mammograms available for comparison. Breast tissue is of average density. The subareolar mass persists and appears to be 8 mm in size, medial subareolar, well-defined. Lymph nodes in the left axilla continue to appear potentially abnormal, being quite dense and without obvious fatty hilar areas. Ultrasound shows the mass medial subareolar on the left to be a 7 mm ovoid well-defined hypoechoic solid mass. This is at 10 o'clock subareolar. There are some very tiny similar-appearing hypoechoic nodular areas scattered throughout this area of the breast, which I suspect are fibrocystic. The lymph nodes in the axilla have benign features, with no abnormal cortical thickening suggested. Dictated by: JOSEPH JUAN on FriNov 10, 2020 1:59:14 PM CDT Transcribed: [facility] INCOMING RADIOLOGY RESULTS on FriNov 10, 2020 3:16:43 PM CDT Signed by: Joseph Juan MD on 11/10/2020 3:20 PM : The 7 mm mass 10 o'clock subareolar on the left is solid and will require additional evaluation. The axillary lymph nodes have benign features on ultrasound and should be of no clinical significance. I discussed this with the patient. I recommend ultrasound-guided core biopsy of the medial subareolar mass. She is agreeable. BI-RADS 4 The patient was given a result/recommendation letter. [id number] Dictated by: JOSEPH JUAN on FriNov 10, 2020 1:59:14 PM CDT Transcribed: [facility] INCOMING RADIOLOGY RESULTS on FriNov 10, 2020 3:16:43 PM CDT Procedure Note Joseph Juan MD - 11/17/2020 Left diagnostic mammogram 3-D spot danika CC imaging with axillary tail 3-D danika imaging and mediolateral digital image and left breast ultrasound: 3-D spot tomosynthesis CC imaging is presented with 3-D danika axillary tail imaging and mediolateral digital image, to evaluate mass medial subareolar on the left as well as suspected abnormal left axillary lymph nodes, on recent screening mammogram 10/04/2020. We have no previous mammograms available for comparison. Breast tissue is of average density. The subareolar mass persists and appears to be 8 mm in size, medial subareolar, well-defined. Lymph nodes in the left axilla continue to appear potentially abnormal, being quite dense and without obvious fatty hilar areas. Ultrasound shows the mass medial subareolar on the left to be a 7 mm ovoid well-defined hypoechoic solid mass. This is at 10 o'clock subareolar. There are some very tiny similar-appearing hypoechoic nodular areas scattered throughout this area of the breast, which I suspect are fibrocystic. The lymph nodes in the axilla have benign features, with no abnormal cortical thickening suggested. Dictated by: JOSEPH JUAN on FriNov 10, 2020 1:59:14 PM CDT Transcribed: [facility] INCOMING RADIOLOGY RESULTS on FriNov 10, 2020 3:16:43 PM CDT Signed by: Joseph Juan MD on 11/10/2020 3:20 PM : The 7 mm mass 10 o'clock subareolar on the left is solid and will require additional evaluation. The axillary lymph nodes have benign features on ultrasound and should be of no clinical significance. I discussed this with the patient. I recommend ultrasound-guided core biopsy of the medial subareolar mass. She is agreeable. BI-RADS 4 The patient was given a result/recommendation letter. 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
--- OUTSIDE RECORDS SUMMARY | 2025-02-06 22:56 | XMS_ITS | Encounter Summary ---
Author Organization [facility] Address [address] [place] [address] Care Team Providers Care Assistant Reading Teacher Name Role Phone Cj Almanza MD Primary Care Provider [phone] Encounter Details Date Type Department Care Team (Latest Contact Info) Description 07/04/2005 Outpatient Historical [facility] [address] [place] [phone] Chrissie Martell MD [facility] [place], [place] [id number] Pure hypercholesterolem (Primary Dx); BIPOLAR - MOST RECENT EPISODE UNSPECIFIED (CMS/HCC); ABNORMAL GLANDULAR PAP SMEAR OF CERVIX Social History Tobacco Use Types Packs/Day Years Used Date Smoking Tobacco: Never Assessed Comments Unknown Sex and Gender Information Value Date Recorded Sex Assigned at Not on file 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 Gender Identity Not on file Sexual Orientation Not on file documented as of this encounter Plan of Treatment Not on file documented as of this encounter Visit Diagnoses Diagnosis Pure hypercholesterolem- Primary Pure hypercholesterolemia Bipolar I disorder, most recent episode (or current) unspecified (CMS/HCC) Bipolar I disorder, most recent episode (or current) unspecified Abnormal glandular Papanicolaou smear of cervix documented in this encounter Care Teams Assistant Reading Teacher Relationship Specialty Start Date End Date Cj Almanza MD [address] [place] [phone] PCP - General Family Practice 07/13/15 documented as of this encounter
--- OUTSIDE RECORDS SUMMARY | 2025-02-06 22:56 | XMS_ITS | Encounter Summary ---
Author Organization [facility] Address [address] [place] [address] Care Team Providers Care Live Out Nanny Name Role Phone Cj Almanza MD Primary Care Provider [phone] Reason for Referral * Radiology Services (Routine) - Closed Specialty Diagnoses / Procedures Referred By Contac t Referred To Contact Radiology Diagnoses Inconclusive mammography Procedures MAMMO BREAST US LEFT LTD Cj Almanza MD [address] [place] [address] Phone: tel: fax: [facility] [address] [address] Phone: tel: fax: Referral ID Status Reason Start Date Expiration Date Visits Requested Visits Authorized [id number] Closed Performing Department to Schedule 11/10/2020 12/11/2021 1 1 Encounter Details Date Type Department Care Team (Latest Contact Info) Description 11/10/2020 Ancillary Orders [facility] [address] [address] Cj Almanza MD [address] [place] [address] Inconclusive mammography Social History Tobacco Use Types Packs/Day Years Used Date Smoking Tobacco: Never Smokeless Tobacco: Never Alcohol Use Standard [...] on file Legal Sex Female 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 No / Unsure 11/10/2020 12:06 PM CDT documented as of this encounter Plan of Treatment Not on file documented as of this encounter Results * (ABNORMAL) MAMMO BREAST US LEFT LTD (11/10/2020 1:46 PM CDT) Anatomical Region Laterality Modality Left Ultrasound 11/10/2020 1:46 PM CDT Narrative 11/17/2020 11:02 AM CDT Left diagnostic mammogram 3-D spot elvia CC imaging with axillary tail 3-D elvia imaging and mediolateral digital image and left breast ultrasound: 3-D spot tomosynthesis CC imaging is presented with 3-D elvia axillary tail imaging and mediolateral digital image, [...] FriNov 10, 2020 1:59:14 PM CDT Transcribed: INTERFACE, [facility] INCOMING RADIOLOGY RESULTS on FriNov 10, 2020 [...] The patient was given a result/recommendation letter. [id number] Dictated by: JOSEPH JUAN on FriNov 10, 2020 1:59:14 PM CDT Transcribed: INTERFACE, [facility] INCOMING RADIOLOGY RESULTS on FriNov 10, 2020 3:16:43 PM CDT Procedure Note Joseph Juan MD - 11/17/2020 Left diagnostic mammogram 3-D spot elvia CC imaging with axillary tail 3-D elvia imaging and mediolateral digital image and left breast ultrasound: 3-D spot tomosynthesis CC imaging is presented with 3-D elvia axillary tail imaging and mediolateral digital image, [...] FriNov 10, 2020 1:59:14 PM CDT Transcribed: [facility] INCOM[facility] RADI[facility]Y RESULTS on FriNov 10, 2020 [...] The patient was given a result/recommendation letter. [id number] Dictated by: JOSEPH JUAN on FriNov 10, 2020 1:59:14 PM CDT Transcribed: [facility] INCOM[facility] RESULTS on FriNov 10, 2020 3:16:43 PM CDT Cj Almanza MD MAMMO ORDERABLES Final Result documented in this encounter Visit Diagnoses Diagnosis Inconclusive mammography Inconclusive mammogram Inconclusive mammography Inconclusive mammogram documented in this encounter Additional Health Concerns Assessment Noted Time PHQ-9 Depression Total Score: 2 06/30/19 21 2:51 PM SALES OPERATIONS LEAD documented as of this encounter Care Teams Live Out Nanny Relationship Specialty Start Date End Date Cj Almanza MD [address] [place] [phone] PCP - General Family Practice 07/13/15 documented as of this encounter
--- OUTSIDE RECORDS SUMMARY | 2025-02-06 22:56 | XMS_ITS | Encounter Summary ---
Author Organization [facility] Address [address] [place] [address] Care Team Providers Care Charge Master Specialist Name Role Phone Cj Almanza MD Primary Care Provider [phone] Encounter Details Date Type Department Care Team (Latest Contact Info) Description 07/01/2005 Outpatient Historical [facility] [address] [phone] Chrissie Martell MD [facility]2 [place], [place] [address] BIPOLAR - MOST RECENT EPISODE UNSPECIFIED (CMS/HCC) (Primary Dx); CLASS MIGRAIN W/O MENTN INTRACTABLE Social History Tobacco Use Types Packs/Day Years Used Date Smoking Tobacco: Never Assessed Comments Unknown Sex and Gender Information Value Date Recorded Sex Assigned at Not on file Legal Sex Female 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 PIT 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 Gender Identity Not on file Sexual Orientation Not on file documented as of this encounter Plan of Treatment Not on file documented as of this encounter Visit Diagnoses Diagnosis Bipolar I disorder, most recent episode (or current) unspecified (CMS/HCC)- Primary Bipolar I disorder, most recent episode (or current) unspecified Migraine with aura, without mention of intractable migraine without mention of status migrainosus documented in this encounter Care Teams Charge Master Specialist Relationship Specialty Start Date End Date Cj Almanza MD [address] [place] [phone] PCP - General Family Practice 07/13/15 documented as of this encounter
--- OUTSIDE RECORDS SUMMARY | 2025-02-06 22:56 | XMS_ITS | Encounter Summary ---
Author Organization [facility] Address [address] [place] [address] Care Team Providers Care Floor Care Specialist Name Role Phone Cj Almanza MD Primary Care Provider [phone] Encounter Details Date Type Department Care Team (Latest Contact Info) Description 11/20/2005 Outpatient Historical [facility] [place] 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
--- OUTSIDE RECORDS SUMMARY | 2025-02-06 22:56 | XMS_ITS | Encounter Summary ---
Author Organization [facility] Address [address] [place] [address] Care Team Providers Care Lens Assorter Name Role Phone Cj Almanza MD Primary Care Provider [phone] Reason for Referral * Radiology Services (Routine) - Closed Specialty Diagnoses / Procedures Referred By Contac t Referred To Contact Radiology Diagnoses Inconclusive mammography Procedures MAMMO DIAG UNI LEFT 3D DANIKA W OR WO CAD CHG DIAGNOSTIC MAMMOGRAPHY COMPUTER-AIDED DETCJ UNI CHG DIGITAL BREAST TOMOSYNTHESIS UNILATERAL Cj Almanza MD [address], [place] [address] Phone: tel: fax: [facility] [address] [address] Phone: tel: fax: Referral ID Status Reason Start Date Expiration Date Visits Requested Visits Authorized [id number] Closed Performing Department to Schedule 10/12/2020 11/12/2021 1 1 Encounter Details Date Type Department Care Team (Latest Contact Info) Description 10/12/[address] 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 No / Unsure 10/04/2020 11:09 AM CDT documented as of this encounter Plan of Treatment Not on file documented as of this encounter Results * (ABNORMAL) MAMMO DIAG UNI LEFT [...] FriNov 10, 2020 1:59:14 PM CDT Transcribed: INTERFACE [facility] INCOMING RADIOLOGY RESULTS on FriNov 10, 2020 [...] The patient was given a result/recommendation letter. [id number] Dictated by: JOSEPH JUAN on FriNov 10, 2020 1:59:14 PM CDT Transcribed: INTERFACE, [facility] INCOMING RADIOLOGY RESULTS on FriNov 10, 2020 [...] no abnormal cortical thickening suggested. Dictated by: JOSEHP JUAN on FriNov 10, 2020 1:59:14 PM [...] The patient was given a result/recommendation letter. [id number] Dictated by: JOSEPH JUAN on FriNov 10, [...] Total Score: 2 06/30/19 21 2:51 PM LIFE SCIENCE TECHNICIAN documented as of this encounter Care Teams Lens Assorter Relationship Specialty Start Date End Date Cj Almanza MD [address] [place] [address] PCP - General Family Practice 07/13/15 documented as of this encounter
--- OUTSIDE RECORDS SUMMARY | 2025-02-06 22:56 | XMS_ITS | Encounter Summary ---
Author Organization [facility] Address [address] [place] [address] Care Team Providers Care Inspector Metal Fabricating Name Role Phone Cj Almanza MD Primary Care Provider [phone] Encounter Details Date Type Department Care Team (Latest Contact Info) Description 06/20/2005 Outpatient Historical [facility] [address] [phone] Chrissie Martell MD [facility]2 [place], [place] [address] BIPOLAR - MOST RECENT EPISODE UNSPECIFIED (CMS/HCC) (Primary Dx); CLASS MIGRAIN W/O MENTN INTRACTABLE Social History Tobacco Use Types Packs/Day Years Used Date Smoking Tobacco: Never Assessed Comments Unknown Sex and Gender Information Value Date Recorded Sex Assigned at Not on file Legal Sex Female 4:15 AM SALES AND 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
--- OUTSIDE RECORDS SUMMARY | 2025-02-06 22:56 | XMS_ITS | Encounter Summary ---
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
--- OUTSIDE RECORDS SUMMARY | 2025-02-06 22:56 | XMS_ITS | Encounter Summary ---
Author Organization [employer] [facility] Address [address] [place] [address] Care Team Providers Care Business Office Manager Name Role Phone Kamran Chavira MD Primary Care Provider [phone] Encounter Details Date Type Department Care Team (Late st Contact Info) Description 02/01/2025 External Device Data [facility] ABSTRACTION Provider, Abstract NO ADDRESS ON FILE Social History Tobacco Use Types Packs/Day Years [...] on file Legal Sex Female 11:33 AM SALES PROMOTION OFFICER Gender Identity Not on file Sexual Orientation Not on file documented as of this encounter Plan of Treatment Not on file documented as of this encounter Visit Diagnoses Not on filedocumented in this encounter Additional Health Concerns Assessment Noted Time PHQ-9 Depression Total Score: 3 04/12/20 24 1:41 PM SALES PROMOTION OFFICER documented as of this encounter Care Teams Business Office Manager Relationship Specialty Start Date End Date Kamran Chavira MD [address] [phone] PCP - General Family Practice 09/05/23 documented as of this encounter
--- OUTSIDE RECORDS SUMMARY | 2025-02-06 22:56 | XMS_ITS | Encounter Summary ---
Author Organization [facility] Address [address] [place] [address] Care Team Providers Care Visitor Use Assistant Name Role Phone Cj Almanza MD Primary Care Provider [phone] Encounter Details Date Type Department Care Team (Latest Contact Info) Description 07/04/2005 Outpatient Historical [facility] [address] [place] [phone] Chrissie Martell MD [facility]2 [place], [place] [address] ROUTINE REGIONAL BUSINESS DEVELOPMENT MANAGER EXAMINATION (Primary Dx) Social History Tobacco Use Types Packs/Day Years Used Date Smoking Tobacco: Never Assessed Comments Unknown Sex and Gender Information Value Date Recorded Sex Assigned at Not on file Legal 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
--- OUTSIDE RECORDS SUMMARY | 2025-02-06 22:56 | XMS_ITS | Encounter Summary ---
Author Organization [employer] [facility] Address [address] [place] [address] Care Team Providers Care Gift Shop Manager Name Role Phone Cj Almanza MD Primary Care Provider [phone] Reason for Referral * Radiology Services (Routine) - Closed Specialty Diagnoses / Procedures Referred By Contac t Referred To Contact Diagnoses Visit for screening mammogram Procedures MAMMO 3D SCREEN BILATERAL MOBILE Lia Naranjo FNP [address] [place] [phone] Phone: tel: fax: Referral ID Status Reason Start Date Expiration Date Visits Re quested Visits Authorized [id number] Closed 09/27/2020 10/28/2021 1 1 Encounter Details Date Type Department Care Team (Latest Contact Info) Description 09/27/2020 Ancillary Orders [facility] [place] [address] [address] Lia Naranjo FNP [address] [place] [phone] Visit for screening mammogram Social History Tobacco Use Types Packs/Day Years [...] on file Legal Sex Female 4:15 AM SUPPORT MERCHANDISER Gender Identity Not on file Sexual Orientation Not on file documented as of this encounter Plan of Treatment Not on file documented as of this encounter Results * MAMMO 3D SCREEN BILATERAL MOBILE (10/04/2020 12:25 PM CDT) Anatomical Region Laterality Modality Breast Bilateral Mammography 10/04/2020 12:2 5 PM CDT Impressions 10/05/2020 3:17 PM CDT : The small mass on the left and the possible abnormal lymph nodes in the left axilla will require additional evaluation. Patient will be contacted by the [facility] to schedule the recommended follow-up appointment. [id number] Narrative 10/05/2020 3:17 PM CDT Bilateral screening mammogram 3-D elvia with or without CAD: 3-D elvia synthesis CC and MLO imaging is presented on this 65-year-old female. We have no previous for comparison. Breast tissue is of average density. Right side appears unremarkable. There are several possible abnormal lymph nodes visible in the left axilla, with no visualization of any lymph nodes on the right. There is also a small mass just medial subareolar on the left. No other abnormality on either side is seen. This digital mammogram was also analyzed by the Computer Aided Detection System (CAD), [employer] ImageChecker, Version 8.3. us Lia Naranjo TREASURY SPECIALIST MAMMO ORDERABLES Final Result documented in this encounter Visit Diagnoses Diagnosis Visit for screening mammogram Other screening mammogram Visit for screening mammogram Other screening mammogram documented in this encounter Additional Health Concerns Assessment Noted Time PHQ-9 Depression Total Score: 2 06/30/19 21 2:51 PM SUPPORT MERCHANDISER documented as of this encounter Care Teams Gift Shop Manager Relationship Specialty Start Date End Date Cj Almanza MD [address] [place] [phone] PCP - General Family Practice 07/13/15 documented as of this encounter
--- OUTSIDE RECORDS SUMMARY | 2025-02-06 22:56 | XMS_ITS | Clinical Summary ---
Author Organization [facility] Address [address] [place] [address] Care Team Providers Care Lap Maker Name Role Phone Kamran Chavira MD Primary Care Provider [phone] Allergies Active Allergy Reactions Criticality Noted Date Comments Codeine Anaphylaxis,Other (See Comments) High 11/2010 Topiramate Hallucination Low 02/24/2018 Medications Cetirizine 10 mg Capsule Take 1 Capsule by mouth daily. Active meclizine (ANTIVERT) 25 mg tabletIndications: Dizziness Take 1 Tablet (25 mg) by mouth 3 times daily as needed for Dizziness. 30 Tablet 03/05/20 23 Active Additional Information Patient not taking.Reported on 02/02/2025 mupirocin (BACTROBAN) 2 % OintmentIndication s:Folliculitis Apply to affected area daily. 30 Gram 2 01/05/20 24 Active Additional Information Patient not taking.Reported on 02/02/2025 OLANZapine (ZyPREXA ZYDIS) 10 mg Tablet, Rapid Dissolve Place 1 Tablet (10 mg) inside cheek daily at bedtime. 30 Tablet 1 03/22/20 24 Active Additional Information Patient not taking.Reported on 02/02/2025 omeprazole (PriLOSEC) 40 mg Capsule, Delayed Release(E.C.)Indic ations:Cough, unspecified type Take 1 Capsule (40 mg) by mouth daily. 90 Capsule 3 05/06/20 24 Active methylPREDNISolone (MEDROL DOSPACK) 4 mg Tablets, Dose PackIndications:Ac [place] bronchitis, unspecified organism As directed 21 Tablet 07/09/19 25 Active Additional Information Patient not taking.Reported on 02/02/2025 atenoloL (TENORMIN) 25 mg tablet TAKE 1 TABLET TWICE DAILY 180 Tablet 3 07/19/19 25 Active Additional Information Patient not taking.Reported on 02/02/2025 ALPRAZolam (XANAX) 0.25 mg tabletIndications: Bipolar affective disorder, current episode hypomanic (CMS/HCC) TAKE 1 TABLET THREE TIMES DAILY NEEDED FOR ANXIETY 180 Tablet 1 09/08/19 25 Active ondansetron (ZOFRAN ODT) 4 mg Tablet, Rapid Dissolve 09/27/19 25 Active promethazine (PHENERGAN) 25 mg Suppository Insert 1 Suppository (25 mg) by rectum every 12 hours as needed for Nausea/Emesis. 12 Suppository 09/28/19 25 Active loperamide (IMODIUM) 2 mg capsule Take 1 Capsule (2 mg) by mouth every 3 hours as needed for Diarrhea/Loose Stools. 20 Capsule 1 09/28/19 25 Active atorvastatin (LIPITOR) 20 mg tabletIndications: Mixed hyperlipidemia Take 1 Tablet (20 mg) by mouth daily. 100 Tablet 3 01/01/20 25 Active Vnrpiteen-UX-Zljtw min-Guaifen (Tylenol Cold and Flu Severe) 8-32-275-200 mg/15 mL Liquid Take 30 mL by mouth every 6 hours as needed. Active naproxen sodium (ALEVE) 220 mg Tablet Take 220 mg by mouth every 8 hours as needed for Pain, Moderate or Pain. Active Kjqvpdobnhgwi-FX-A cetaminophen (Severe Cold and Flu-Day, DM,) 5-10-325 mg/15 mL Liquid Take 30 mL by mouth every 4 hours as needed for Other (See Comment) (cough/chest congestion). Active azithromycin (ZITHROMAX) 500 mg tabletIndications: Upper respiratory tract infection, unspecified type Take 1 Tablet (500 mg) by mouth daily for 1 day, THEN 0.5 Tablets (250 mg) daily for 4 days. 3 Tablet 02/03/20 25 025 Active fluticasone propionate (FLONASE) 50 mcg/spray [place], Suspension nasal inhalerIndications :Non-seasonal allergic rhinitis due to other allergic trigger Administer 2 Sprays in each nostril daily. 16 Gram 5 02/03/20 25 Active albuterol sulfate HFA 90 mcg/actuation aerosol inhaler Take 2 Puffs by inhalation every 6 hours as needed for Shortness of Breath. 8.5 Gram 02/03/20 25 Active Active Problems Problem Noted Date Diagnosed Date Lactose intolerance 08/29/2021 Mixed hyperlipidemia 09/16/2020 Generalized anxiety disorder 08/03/2020 Migraine 09/24/2011 Bipolar affective disorder, currently depressed, moderate 07/02/2010 Action tremor 07/02/2010 Encounters Date Type Department Care Team Description 02/02/2025 11:20 AM CDT Office Visit [facility] [address] [id number] Amirah Thompson, JASON Upper respiratory tract infection, unspecified type (Primary Dx); Non-seasonal allergic rhinitis due to other allergic trigger; Encounter for colorectal cancer screening 02/02/2025 Nurse Triage [facility] [address] [address] Kamran Chavira MD 02/01/2025 External Device Data ST[facility] ABSTRACTION Provider, Abstract 12/29/2024 External Device Data [place] ABSTRACTION Provider, Abstract 12/29/2024 Refill [facility] [address] [phone] Kamran Chavira MD Mixed hyperlipidemia (Primary Dx) 12/28/2024 External Device Data [place] ABSTRACTION Provider, Abstract 12/08/2024 External Device Data [place] ABSTRACTION Provider, Abstract 12/08/2024 External Device Data [place] ABSTRACTION Provider, Abstract 12/07/2024 External Device Data [place] ABSTRACTION Provider, Abstract 11/14/2024 Refill [facility] [address] [address] Kamran Chavira MD Mixed hyperlipidemia from Last 3 Months Immunizations Immunization Administration Dates Next Due (ADACEL/BOOSTRIX)(10 YR UP) TDAP VACCINE, 0.5ML, IM 04/25/2017 (CHARI) COVID-19 VACCINE - EMERGENCY USE AUTHORIZATION, AD26,COV2S(PF) 0.5 ML IM SUSP 09/29/2020 (PREVNAR 20)(6 WKS UP) PNEUM OCOCCAL CONJUGATE VACCINE 20-VALENT (PCV20), POLYSACCHARIDE [id number] CONJUGATE, ADJUVANT 0.5 ML (PF) IM 09/05/2023 (SPIKEVAX) (12 YRS UP PRIMAR Y SERIES) COVID-19 VACCINE - MRNA-1273(PF) 100 MCG/0.5 ML IM SUSP 10/19/2021,04/11/2021 INFLUENZA VACCINE HIGH DOSE QUADRIVALENT 65 YR UP PF IM 04/11/2021 INFLUENZA VACCINE QUADRIVALE NT 3 YR UP PF IM 02/25/2020 INFLUENZA VACCINE QUADRIVALE NT 6 MOS UP PF IM 03/11/2019,03/18/2018,04/25/2017 Influenza Seasonal Unspecifi ed Formulation IM 03/02/2024,04/11/2021,02/25/2020,03/11,03/18/2018,04/25/2017,03/21/2014 ,06/22/2013,06/01/2012,04/09/2011 Influenza Vaccine High Dose 65+ Yrs IM 9 PREVNAR (PCV13) pneumococcal 13-valent conjugate Vaccine 03/16/2019 Family History Medical History Relation Name Comments Cancer Father Lung Cancer Father Stroke Maternal Grandfather Breast Cancer Mother Other Other dementia/alzthe mimers in aunts Melanoma Neg Hx Ovarian Cancer Neg Hx Pancreatic Cancer Neg Hx Uterine or Endometrial Cance r, Not Including Cervical Neg Hx Relation Name Status Comments Father Maternal Grandfather Mother Alive Other Social History Tobacco Use Types Packs/Day Years Used Date Smoking Tobacco: Never Passive Smoke Exposure: Never Smokeless Tobacco: Never Tobacco Cessation:Counseling Given: Not Answered Alcohol Use Standard Drinks/Week Comments No 0 [...] on file 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 Gender Identity Not on file Sexual Orientation [...] Mass Index 29.92 02/02/2025 11:23 AM CDT Plan of Treatment Health Maintenance Due Date Last Done Comments FIT/ DNA Q 3 YEARS (AUTO ORDER) 1973 FLEX SIG/CT COLONOGRAPHY Q 5 YEARS (AUTO ORDER) 1973 COLORECTAL CANCER SCREENING (AUTO ORDER) 2000 COLORECTAL SCREENING 2000 FIT-DNA Q 3 years 2000 Flex Sig/CT Colonography Q 5 years 2000 ZOSTER VACCINE (1 of 2) 2005 BREAST CANCER SCREENING 11/12/2023 11/12/19 23, 11/11/2022, 11/10/2020, Additional history exists Medicare Advantage ([place]) Preventative Visit/Annual Wellness Visit 05/26/2024 04/12/2024, 09/05/2023, 03/05/2023, Additional history exists INFLUENZA VACCINE (#1) 2024 , 04/11/2021, 04/11/2021, Additional history exists COVID-19 Vaccine ( - 2023-2 5 season) 2025 03/02/2024, 10/19/2021, 04/11/2021, Additional history exists Colorectal Cancer Screening (AUTO ORDER) 04/15/2025 Colorectal Cancer Screening 04/15/2025 FIT/FOBT Q 1 YEAR (AUTO ORDER) 04/15/2025 04/15/2024 , 02/03/2023 FIT/FOBT Q 1 year 04/15/2025 04/15/2024, 02/03/2023 DTAP/TDAP/TD VACCINES (2 - T d or Tdap) 04/25/2027 04/25/2017 OSTEOPOROSIS SCREENING 09/04/2027 09/03/2022 Pre-Diabetes and Diabetes Screening 09/09/2027 09/08/2024 RSV VACCINE (60+ or ) (1 - 1-dose 75+ series) 2030 PNEUMOCOCCAL VACCINE 50+ YEARS Completed 09/05/2023 , 03/16/2019 Procedures Procedure Name Priority Date/Time Associated Diagnosis Comments HEMOGLOBIN A1C Routine 09/08/2024 1:51 PM CDT Screening for diabetes mellitus Encounter for routine adult health examination without abnormal findings OCCULT BLOOD IMMUNOASSAY, COLORECTAL SCREEN Routine 04/15/2024 12:00 AM CST Medicare annual wellness visit, subsequent MAMMO 3D DANIKA DIAGNOSTIC BILAT W OR WO CAD Routine 11/11/2022 2:50 PM CDT Abnormal mammogram XR DEXA BONE DENSITY AXIAL 1 OR MORE SITES Routine 09/03/2022 1:39 PM CDT Postmenopausal from Last 3 Months or Most Recently Relevant to Health Maintenance Results * (ABNORMAL) HEMOGLOBIN A1C (09/08/2024 1:51 PM CDT) HEMOGLOBIN A1C 6.5(H) <5.7 % [facility] Comment: For someone without known diabetes, a hemoglobin A1c value of 6.5% or greater indicates that they may have diabetes and this should be confirmed with a follow-up test. For someone with known diabetes, a value <7% indicates that their diabetes is well controlled and a value greater than or equal to 7% indicates suboptimal control. A1c targets should be individualized based on duration of diabetes, age, comorbid conditions, and other considerations. Currently, no consensus exists regarding use of hemoglobin A1c for diagnosis of diabetes for children. ESTIMATED AVERAGE GLUCOSE (MG/DL) 140 mg/dL [facility] ESTIMATED AVERAGE GLUCOSE (MMOL/L) 7.7 mmol/L [facility] Comment: Test Performed at: [facility] [address] [place] [address] Cookie Manning MD Blood 09/08/2024 1:51 PM CDT 09/08/2024 1:52 PM CDT Trisha GOMEZ CHEMISTRY ORDERABLES Lynne l Result Performing Organization Address City/[facility]/ZIP Co de Phone Number [facility] [phone] [facility] [address] [place] [address] * OCCULT BLOOD IMMUNOASSAY, COLORECTAL SCREEN (04/15/2024 12:00 AM AC/DC REWINDER) FECAL GLOBIN SEE NOTE [facility] Comment: FECAL GLOBIN BY IMMUNOCHEMISTRY Micro Number: [id number] Test Status: Final Specimen Source: Stool Specimen Quality: Adequate Fecal Globin: Not Detected Test Performed at: [place] [address] [place] [address] Cookie Manning MD Stool STOOL SPECIMEN / Unknown 04/15/2024 04/20/2024 10:42 AM AC/DC REWINDER Kamran Chavira MD BODY FLUIDS AND STOOLS Final Res ult [facility] [phone] [facility] [id number] [facility] [place] [address] * MAMMO DIAG BILAT 3D DANIKA W OR WO CAD (11/11/2022 2:50 PM CDT) Anatomical Region Laterality Modality Breast Bilateral Mammography 11/11/2022 2:27 PM CDT Impressions 11/12/2022 9:34 AM CDT IMPRESSION: 1. No imaging evidence of malignancy. The patient was given verbal and written results and recommendations by the technologist. BI-RADS ASSESSMENT: 2 - Benign RECOMMENDATION: Routine annual screening mammogram in 1 year. 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 COMPARISON: Comparison was made to exams dating back to 2020. MAMMOGRAM TECHNIQUE: 2-D and 3D tomosynthesis diagnostic images were acquired and CAD was also used. BREAST COMPOSITION: There are scattered areas of fibroglandular density. FINDINGS: RIGHT BREAST: There are no suspicious masses, calcifications or areas of distortion. LEFT BREAST: There are no suspicious masses, calcifications or areas of distortion. Biopsy markers noted within the anterior left breast at the benign biopsy site. No significant changes are present. 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 COMPARISON: Comparison was made to exams dating back to 2020. MAMMOGRAM TECHNIQUE: 2-D and 3D tomosynthesis diagnostic images were acquired and CAD was also used. BREAST COMPOSITION: There are scattered areas of fibroglandular density. FINDINGS: RIGHT BREAST: There are no suspicious masses, calcifications or areas of distortion. LEFT BREAST: There are no suspicious masses, calcifications or areas of distortion. Biopsy markers noted within the anterior left breast at the benign biopsy site. No significant changes are present. IMPRESSION: 1. No imaging evidence of malignancy. The patient was given verbal and written results and recommendations by the technologist. BI-RADS ASSESSMENT: 2 - Benign RECOMMENDATION: Routine annual screening mammogram in 1 year. [id number] Cj Almanza MD MAMMO ORDERABLES Final Result * XR DEXA BONE DENSITY AXIAL 1 OR MORE SITES (09/03/2022 1:39 PM CDT) Anatomical Region Laterality Modality Nuclear Medicine 09/03/2022 1:39 PM CDT Impressions 09/03/2022 7:56 PM CDT IMPRESSION: Abnormal examination Bone density lies in the osteopenic range in the left proximal femur at the average the patient's age-matched control consistent with age-appropriate physiologic demineralization responsible for her osteopenia. NOF guidelines recommend consideration of FDA-approved medical therapies in patients with FRAX determined 10-year probabilities of hip/major osteoporosis-related fractures equal or greater than 3%/20% respectively. Consider assessing fracture risk using the FRAX analysis tool for guidance of clinical management available online at www.shef.ac.uk/FRAX/. Enter [employer] for Select DXA and the Femoral Neck BMD value. Narrative 09/03/2022 7:56 PM CDT DEXA Evaluation of the Lumbar Spine and Left Proximal Femur Reason for Consultation: Ovarian failure for osteoporosis screening. Evaluation of bone mineral density. The following absorptiometry data were obtained. The quality of this examination is acceptable with regards to count density, processed images, data display and lack of important artifacts (including but not limited to motion and attenuation artifacts). Serial examination number 1. L1-L4 BMD (g/cm2): 1.234 Adult T-score: 0.4 Adult Z-score: 1.9 Left Femoral Neck BMD (g/cm2): 0.897 Adult T-score: -1.0 Adult Z-score: 0.4 Left Total Hip BMD (g/cm2): 0.981 Adult T-score: -0.2 Adult Z-score: 1.0 Procedure Note Lit Hand MD - 09/03/2022 DEXA Evaluation of the Lumbar Spine and Left Proximal Femur Reason for Consultation: Ovarian failure for osteoporosis screening. Evaluation of bone mineral density. The following absorptiometry data were obtained. The quality of this examination is acceptable with regards to count density, processed images, data display and lack of important artifacts (including but not limited to motion and attenuation artifacts). Serial examination number 1. L1-L4 BMD (g/cm2): 1.234 Adult T-score: 0.4 Adult Z-score: 1.9 Left Femoral Neck BMD (g/cm2): 0.897 Adult T-score: -1.0 Adult Z-score: 0.4 Left Total Hip BMD (g/cm2): 0.981 Adult T-score: -0.2 Adult Z-score: 1.0 IMPRESSION: Abnormal examination Bone density lies in the osteopenic range in the left proximal femur at the average the patient's age-matched control consistent with age-appropriate physiologic demineralization responsible for her osteopenia. NOF guidelines recommend consideration of FDA-approved medical therapies in patients with FRAX determined 10-year probabilities of hip/major osteoporosis-related fractures equal or greater than 3%/20% respectively. Consider assessing fracture risk using the FRAX analysis tool for guidance of clinical management available online at www.shef.ac.uk/FRAX/. Enter [employer] for Select DXA and the Femoral Neck BMD value. 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
--- OUTSIDE RECORDS SUMMARY | 2025-02-06 22:56 | XMS_ITS | Encounter Summary ---
Author Organization [facility] Address [address] [place] [address] Care Team Providers Care Psychologist Research Assistant Name Role Phone Cj Almanza MD Primary Care Provider [phone] Encounter Details Date Type Department Care Team (Latest Contact Info) Description 11/20/2005 Outpatient [facility] [place] [address] [place] [address] Sam Cavazos MD [address] [place] [address] Special Screening for Malignant Neoplasms, Colon (Primary Dx) Social History Tobacco Use Types Packs/Day Years Used Date Smoking Tobacco: Never Assessed Comments Unknown Sex and Gender Information Value Date Recorded Sex Assigned at Not on file 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
[2025-02-06 23:23] VITALS: BP 131/82; PULSE 59; RESP 20; TEMP 36.7; O2SAT 96; BMI 29.9
[2025-02-07 01:46] LABS: Hematocrit 41.3 % (36-47); Hemoglobin 13.20 g/dL (11.27-16.99); Mean Corpuscular HGB Conc 32.0 g/dL (30-55); Mean Corpuscular Hemoglobin 27.9 pg (27-33); Mean Corpuscular Volume 87.3 fl (85-98); Nucleated Red Blood Cells % 0 %; Platelet Count 368 10^3/cmm (157-399); Red Blood Count 4.73 10^6/uL (3.85-5.65); White Blood Count 12.05 10^3/uL (3.29-11.43)
[2025-02-07 02:13] LABS: Alanine Aminotransferase 10 U/L (0-33); Albumin Level 4.4 g/dL (3.5-5.2); Alkaline Phosphatase 129 U/L (35-105); Anion Gap 14.2 (5-19); Aspartate Amino Transferase 15 U/L (0-32); Blood Urea Nitrogen 17 mg/dL (8-23); Calcium 9.5 mg/dL (8.5-10.5); Carbon Dioxide 27 mmol/L (22-29); Chloride 101 mmol/L (98-107); Creatinine Clr Calc Pharmacy 57.6887; Globulin 3.8 g/dL (1.3-4.6); Glucose 112 mg/dL (65-115); Osmolality Calculated 288 mOsm/kg (285-295); Potassium 4.2 mmol/L (3.5-5.1); Sodium 138 mmol/L (136-145); Total Protein 8.2 g/dL (6.6-8.7)
[2025-02-07 02:27] VITALS: BP 137/76; PULSE 52; RESP 16; O2SAT 94
[2025-02-07 02:54] LABS: Glucose Urine UA Negative (Normal); Nitrate Urine Negative (Negative); Specific Gravity, Urine 1.018 (1.005-1.030)
[2025-02-07 02:56] LABS: Lipase 31 U/L (13-60)
[2025-02-07 03:00] LABS: Add Urine Microscopic? YES
--- NOTE | 2025-02-07 03:15 | CTR_ITS ---
PROCEDURE INFORMATION: Exam: CT Abdomen And Pelvis Without Contrast Exam date and time: 02/07/2025 3:29 AM Age: 69 years old Clinical indication: Abdominal pain; Right; Prior surgery; Surgery date: 6+ months; Surgery type: Hysterectomy; RT flank pain with hematuria. ; Additional info: R flank pain hematuria TECHNIQUE: Imaging protocol: Computed tomography of the abdomen and pelvis without contrast. Radiation optimization: All CT scans at this facility use at least one of these dose optimization techniques: automated exposure control; mA and/or kV adjustment per patient size (includes targeted exams where dose is matched to clinical indication); or iterative reconstruction. COMPARISON: CT abdomen pelvis w con* [id number] 09/26/2024 3:58 AM RADIATION DOSE METRICS: Total DLP (mGy-cm): 506.99 FINDINGS: Lungs: 0.4 cm pulmonary nodule in the anterolateral right middle lobe appears unchanged compared to 02/19/2021. No additional follow-up indicated. Liver: The liver is unremarkable. Gallbladder and biliary ducts: The gallbladder is unremarkable. No biliary ductal dilatation. Pancreas: The pancreas is unremarkable. Spleen: The spleen is unremarkable. Adrenal glands: The adrenal glands are unremarkable. Kidneys and ureters: 0.6 mm obstructing ureterolith located at the right ureteropelvic junction. Mild right hydronephrosis. Left kidney and ureter are normal in appearance. Stomach and bowel: No evidence of bowel obstruction. Appendix: No evidence of acute appendicitis. Intraperitoneal space: No significant free fluid in the abdomen or pelvis. No extraluminal free air. Vasculature: Abdominal aorta and its major branches are within normal limits. No abdominal aortic aneurysm. Lymph nodes: No distinct pathologically enlarged lymphadenopathy. Urinary bladder: Urinary bladder is within normal limits. Reproductive: Uterus is absent. Bones/joints: No acute osseous findings. Soft tissues: Visualized superficial soft tissues are within normal limits. CT/CT kidney stone [id number] IMPRESSION: 0.6 mm obstructing ureterolith located at the right ureteropelvic junction. Mild right hydronephrosis.
[2025-02-07 03:22] VITALS: RESP 18; O2SAT 94
[2025-02-07] MEDS: ondansetron 2 mg/ML SDV 2 mL 4 MG IVP (03:22)
[2025-02-07] MEDS: cefTRIAXone 1,000 mg SDV 1000 MG IVP (03:22)
[2025-02-07] MEDS: fentaNYL 50 mcg/mL INJ 2mL IVP (03:22)
--- NOTE | 2025-02-07 04:05 | ED_ITS ---
HPI - Abdominal Pain 2 General: Chief Complaint: Abdominal Pain Stated Complaint: Lower RT back pain Time Seen by Provider: 02/07/25 02:50 History of Present Illness: Patient is a 69-year-old female presenting with right flank pain. She reports the pain was initially severe, localized to the right side of her back. She also reports associated nausea, particularly when getting up to urinate, though denies vomiting. Patient notes changes in her urine, stating it sometimes appears dark and sometimes pale. She reports recent gastrointestinal changes with a history of diarrhea that has now shifted to constipation. She denies dysuria, hematuria, or fever. The patient's suggested the possibility of kidney stones, which is consistent with the clinical presentation. Related Data Previous Rx's ?Medication ?Instructions ?Recorded albuterol sulfate 90 mcg/actuation 1 inh inhalation Q6 H PRN shortness 02/19/21 aerosol inhaler of breath or wheezing #8.5 g yeny ondansetron 4 mg disintegrating 4 mg PO Q6H PRN nausea and 09/26/24 tablet vomiting #14 tabs cefdinir 300 mg capsule 300 mg PO BID #14 caps 02/07 hydrocodone 5 mg-acetaminophen 325 1 tab PO Q8H PRN pa in #7 tabs 02/07/25 mg tablet ondansetron 4 mg disintegrating 4 mg PO Q6H PRN nausea and 02/07/25 tablet vomiting #14 tabs tamsulosin 0.4 mg capsule (Flomax) 0.4 mg PO DAILY #10 caps 02/07/25 Allergies Allergy/AdvReac Type Severity Reaction Status Date / Time codeine Allergy ALGY-Anaphy Verified 01/12/20 11:05 laxis Physical Exam 2 Const: COMMON NORMALS: no acute distress GENERAL APPEARANCE: cooperative; not ill appearing and not frail appearing HENMT: COMMON NORMALS: normocephalic, atraumatic and Normal external nose present HEAD & SCALP: normocephalic and atraumatic FACE & SINUS: normal facial exam and face symmetric NOSE: Normal external nose present Eye: COMMON NORMALS: Equal, round and reactive pupils present and EOMs intact bilaterally PUPIL: Yes Equal, round and reactive pupils present Neck/C-Spine: GENERAL: Yes trachea midline Chest: CHEST: Yes Symmetrical chest wall rise Resp: COMMON NORMALS: normal respiratory effort, No retractions, No use of accessory muscles and clear to auscultation bilaterally AUSCULTATION: clear to auscultation bilaterally Cardio: COMMON NORMALS: regular rate and regular rhythm RATE: regular rate RHYTHM: regular rhythm GI: COMMON NORMALS: Normal to inspection, nondistended, normoactive bowel sounds present PALPATION: Yes Tenderness to palpation present (GI) Details: RLQ and Yes Guarding due to palpation present (GI) : BLADDER/KIDNEY EXAM: Yes CVA tenderness on the right Back/Pelvis: GENERAL BACK: Yes CVA tenderness Extremity: COMMON NORMALS: no pedal edema Neuro: KT COMA SCALE: document GCS findings Kt coma scale eye opening: Spontaneous [place] coma scale verbal response: Orientated [place] coma scale motor response: Obey commands Kt coma scale total score: 15 S ENSORY EXAM: Yes extremities (intact) Psych: COMMON NORMALS: speech normal SPEECH: Yes normal speech Skin: COMMON NORMALS: no rashes or lesions noted GENERAL SKIN EXAM: no rashes or lesions noted Course 2 Vital Signs: Vital signs: Vital Signs Temperature 98.0 F 02/06/25 23:23 Pulse Rate 52 L 02/07/25 02:27 Respiratory Rate 18 02/07/25 03:22 Blood Pressure 137/76 02/07/25 02:27 Pulse Oximetry 94 02/07/25 03:22 Oxygen Delivery Me thod Room Air 02/07/25 02:27 MDM - Abdominal Pain Medical Decision Making Vitals are stable. White blood cell count is 12. CRP is 12. Patient has a 2+ leukocyte esterase urine that is nitrate negative with 21-50 whites and reds. She is given IV Rocephin. CT kidney stone is pending result. CT reveals a 6 mm kidney stone at the right UPJ. This is consistent with her symptoms. She has a mild urinary tract infection associated with this. She is afebrile. She is not vomiting. She will be placed on cefdinir for coverage. Urology follow-up. Flomax, symptom control. Return for worsening symptoms. Lab Data 02/07/25 01:25 02/07/25 01:25 Labs/Radiology: Radiology Impressions Abdomen/Pelvis CT 02/07/25 03:15 IMPRESSION: 0.6 mm obstructing ureterolith located at the right ureteropelvic junction. Mild right hydronephrosis. Laboratory Results WBC 12.05 10^3/uL (3.29-11.43) H 02/07/25 01:25 RBC 4.73 10^6/uL (3.85-5.65) 02/07/25 01:25 Hgb 13.20 g/dL (11.27-16.99) 02/07/25 01:25 Hct 41.3 % (36-47) 02/07/25 01:25 MCV 87.3 fl (85-98) 02/07/25 01:25 MCH 27.9 pg (27-33) 02/07/25 01:25 MCHC 32.0 g/dL (30-55) 02/07/25 01:25 RDW 13.2 % (12.1-15.1) 02/07/25 01:25 Plt Count 368 10^3/cmm (157-399) 02/07/25 01:25 MPV 8.4 fL (7.4-10.4) 02/07/25 01:25 Neut % (Auto) 72.0 % 02/07/25 01:25 Lymph % (Auto) 20.7 % 02/07/25 01:25 Dickens % (Auto) 4.8 % 02/07/25 01:25 Eos % (Auto) 1.7 % 02/07/25 01:25 Baso % (Auto) 0.3 % 02/07/25 01:25 Neut # (Auto) 8.68 10^3/uL (1.8-7.7) H 02/07/25 01:25 Lymph # (Auto) 2.5 10^3/uL (0.8-4.8) 02/07/25 01:25 Dickens # (Auto) 0.6 10^3/uL (0.2-0.9) 02/07/25 01:25 Eos # (Auto) 0.2 10^3/uL (0.0-0.8) 02/07/25 01:25 Baso # (Auto) 0.0 10^3/uL (0.0-0.1) 02/07/25 01:25 Nucleated RBC % (auto) 0 % 02/07/25 01:25 Nucleated RBCs # 0.0 /100WBC 02/07/25 01:25 Sodium 138 mmol/L (136-145) 02/07/25 01:25 Potassium 4.2 mmol/L (3.5-5.1) 02/07/25 01:25 Chloride 101 mmol/L (98-107) 02/07/25 01:25 Carbon Dioxide 27 mmol/L (22-29) 02/07/25 01:25 Anion Gap 14.2 (5-19) 02/07/25 01:25 BUN 17 mg/dL (8-23) 02/07/25 01:25 Creatinine 0.6 mg/dL (0.5-0.9) 02/07/25 01:25 GFR Calculation 99.1 mL/min (90-130) 02/07/25 01:25 Glucose 112 mg/dL (65-115) 02/07/25 01:25 Calculated Osmolality 288 mOsm/kg (285-295) 02/07/25 01:25 Calcium 9.5 mg/dL (8.5-10.5) 02/07/25 01:25 Total Bilirubin 0.5 mg/dL (0.15-1.2) 02/07/25 01:25 AST 15 U/L (0-32) 02/07/25 01:25 ALT 10 U/L (0-33) 02/07/25 01:25 Alkaline Phosphatase 129 U/L (35-105) H 02/07/25 01:25 C-Reactive Protein 11.9 mg/L (0.0-4.9) H 02/07/25 01:25 Total Protein 8.2 g/dL (6.6-8.7) 02/07/25 01:25 Albumin 4.4 g/dL (3.5-5.2) 02/07/25 01:25 Globulin 3.8 g/dL (1.3-4.6) 02/07/25 01:25 Lipase 31 U/L (13-60) 02/07/25 01:25 Urine Color Yellow (Yellow) 02/07/25 02:35 Urine Appearance Cloudy (CLEAR) A 02/07/25 02:35 Urine pH 6.0 (5-7) 02/07/25 02:35 Ur Specific [place] 1.018 (1.005-1.030) 02/07/25 02:35 Urine Protein Trace (Negative) A 02/07/25 02:35 Urine Glucose (UA) Negative (Normal) 02/07/25 02:35 Urine Ketones Trace (Negative) 02/07/25 02:35 Urine Blood 2+ (Negative) A 02/07/25 02:35 Urine Nitrate Negative (Negative) 02/07/25 02:35 Urine Bilirubin Negative (Negative) 02/07/25 02:35 Urine Urobilinogen 0.2 mg/dL (Negative) 02/07/25 02:35 Ur Leukocyte Esterase 2+ (Negative) A 02/07/25 02:35 Urine RBC 21-50 /hpf (0-2) H 02/07/25 02:35 Urine WBC 21-50 /hpf (0-5) H 02/07/25 02:35 Ur Squamous Epith Cells 6-10 /hpf (0-5) 02/07/25 02:35 Amorphous Sediment Not Reportable 02/07/25 02:35 Urine Bacteria None seen /hpf (NONE) 02/07/25 02:35 Hyaline Casts 1.65 /lpf 02/07/25 02:35 All radiology interpretation(s) finalized by discharge Discharge Plan Discharge Patient Disposition: Home Clinical Impression: Ureterolithiasis, Acute UTI Condition: Stable Prescriptions: New hydrocodone-acetaminophen 5-325 mg tablet 1 tab PO Q8H PRN (Reason: pain) Qty: 7 0RF ondansetron 4 mg tablet,disintegrating 4 mg PO Q6H PRN (Reason: nausea and vomiting) Qty: 14 0RF tamsulosin [Flomax] 0.4 mg capsule 0.4 mg PO DAILY Qty: 10 0RF cefdinir 300 mg capsule 300 mg PO BID Qty: 14 0RF No Action albuterol sulfate 90 mcg/actuation HFA aerosol inhaler 1 inh inhalation Q6H PRN (Reason: shortness of breath or wheezing) Qty: 8.5 0RF ondansetron 4 mg tablet,disintegrating 4 mg PO Q6H PRN (Reason: nausea and vomiting) Qty: 14 0RF Discharge Orders: Discharge ED (Routine); Ordered 02/07/25 Ordered By: Oc Francis Referrals: Andrzej Webber [Referring, Urology] - 1-3 days Patient Instructions: Kidney Stones (ED), Urinary Tract Infection in Women (ED), Opioid Safety, Pain Management, Patient Portal & Niko Instructions Activity Restrictions/Additional Instructions: Antibiotics as directed. Take Flomax to potentially help you pass the stone. Pain and nausea medication as needed. Stay hydrated. Call urology later this morning for a follow-up appointment this week. Return for uncontrolled pain, fever greater than 100 ?F, vomiting liquids or medications despite treatment, other concerning symptoms. Print Language: Tuvaluan Coding Level of Care Code ED Cotton Gin Yard Supervisor for Radha Domingo
[2025-02-07 05:17] VITALS: BP 150/79; PULSE 50; RESP 16; O2SAT 98
== END 2025-02-07 05:18 | disposition home or self-care (01) ==
PROVIDERS: Physician Assistant; Emergency Provider Emergency Medicine
DX: N20.1 Calculus of ureter (principal); N39.0 Urinary tract infection, site not specified
CPT/HCPCS: 36415; 74176; 80053; 81001; 83690; 85025; 86140; 87086; 96374; 96375; 99285; J0696; J2405; J3010

== ENCOUNTER 2025-03-12 15:32 | Emergency (ER) | payer MEDICARE, SELFPAY ==
[2025-03-12 15:39] VITALS: BP 139/79; PULSE 54; RESP 18; TEMP 36.7; O2SAT 96; BMI 29.2
--- OUTSIDE RECORDS SUMMARY | 2025-03-12 15:40 | XMS_ITS | Encounter Summary ---
Author Organization [facility] Address [address] [place] [address] Care Team Providers Care Joinery Patternmaker Name Role Phone Cj Almanza MD Primary Care Provider [phone] Encounter Details Date Type Department Care Team (Latest Contact Info) Description 11/20/2005 Outpatient Historical [facility]- [place] 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
--- OUTSIDE RECORDS SUMMARY | 2025-03-12 15:40 | XMS_ITS | Clinical Summary ---
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 [id number] Dictated by: JOSEPH JUAN on FriNov 10, 2020 1:59:14 PM CDT Transcribed: [facility] INCOMING RADIOLOGY RESULTS on FriNov 10, 2020 [...] The patient was given a result/recommendation letter. [id number] Dictated by: JOSEPH JUAN on FriNov 10, 2020 1:59:14 PM CDT Transcribed: [facility] INCOMING RADIOLOGY RESULTS on FriNov 10, 2020 3:16:43 PM CDT Cj Almanza MD MAMMO ORDERABLES Final Result from Last 3 Months or Most Recently Relevant to Health Maintenance Insurance [address] [address] [place] [facility] [id number] HMO Advance Directives For more information, please contact: [phone] Documents on File Type Date Recorded Patient Rural Service Engineer Expl anation Advance Directive POA 02/29/2020 3:19 PM A dvance Directive POA Care Teams Web Development Manager Relationship Specialty Start Date End Date Cj Almanza MD [address] [place] [address] PCP - General Family Practice 07/13/15
--- OUTSIDE RECORDS SUMMARY | 2025-03-12 15:40 | XMS_ITS | Encounter Summary ---
Author Organization [facility] Address [address] [place] [address] Care Team Providers Care Assistant Grocery Name Role Phone Kamran Chavira MD Primary Care Provider [phone] Encounter Details Date Type Department Care Team (Late st Contact Info) Description 03/08/2025 External Device Data STL ABSTRACTION Provider, Abstract [...] on file Legal Sex Female 11:33 AM DIETARY AID Gender Identity Not on file Sexual Orientation Not on file documented as of this encounter Plan of Treatment Not on file documented as of this encounter Visit Diagnoses Not on filedocumented in this encounter Additional Health Concerns Assessment Noted Time PHQ-9 Depression Total Score: 3 04/12/20 24 1:41 PM DIETARY AID documented as of this encounter Care Teams Assistant Grocery Relationship Specialty Start Date End Date Kamran Chavira MD [address] [address] PCP - General Family Practice 09/05/23 documented as of this encounter
--- OUTSIDE RECORDS SUMMARY | 2025-03-12 15:40 | XMS_ITS | Patient Health Record ---
Author Organization [facility] Address [address] [place] [address] Care Team Providers Care Cellular Biologist Name Role Phone Kamran Chavira Primary Care Provider LINDA Gonsalves Unavailable [phone] NATO BEDOYA Unavailable [phone] Allergies Allergen (clinical drug ingredient) Drug/Non Drug Allergy documented on EMR Reaction Allergy Type Onset Date Status codeine Codeine Unknown Drug Allergy Active Results Component Value Reference Range Notes Urinalysis, Routine Reviewed date:03/04/2025 10:38:28 AM Interpretation: Performing Lab: Notes/Report: Urine-Color brown Appearance cloudy Glucose - Bilirubin - Ketones - Specific [place] 1.030 Occult Blood 3+ pH 6.0 Urine Protein 1+ Urobilinogen,Semi-Qn - Nitrite, Urine - WBC Esterase 1+ Urinalysis, Routine Reviewed date:02/08/2025 10:40:29 AM Interpretation: Performing Lab: Notes/Report: Urine-Color yellow Appearance clear Glucose - Bilirubin - Ketones trace Specific [place] 1.030 Occult Blood 3+ pH 6.0 Urine Protein 1+ Urobilinogen,Semi-Qn - Nitrite, Urine - WBC Esterase - CULTURE, URINE, ROUTINE (395 ) Reviewed date:02/10/2025 08:57:20 AM Interpretation: Performing Lab:[place], [id number] Elsa Do, [id number] Cookie Manning MD Notes/Report: NON-FASTING CULTURE, URINE, ROUTINE SEE NOTE CULTURE, URINE, ROUTINE Micro Number: [id number] Test Status: Final Specimen Source: Urine Specimen Quality: Adequate Result: No Growth Comment: No collection date was provided. The specimen is generally defined as stable up to 48 hours. The result(s) need(s) to be interpreted cautiously. Clinicopathologic correlation is required. Repeat testing is recommended as clinically indicated. Customer Service is available with questions or comments based on your area of interest: [phone] ([phone]) NO COLLECTION DATE RECEIVED. WE HAVE USED THE DATE THE SPECIMEN WAS RECEIVED BY THIS LABORATORY THE COLLECTION DATE. IF THIS IS INCORRECT, PLEASE CONTACT CLIENT SERVICES. PHONE NUMBER: [phone] Reason For Referral No Information Medications Medication SIG (Take, Route, Frequency, Duration) Notes Start Date End Date Status Flonase Active Venlafaxine HCl 75 MG 1 tablet with food Orally Once a day Active Omeprazole 40 MG 1 capsule 1/2 to 1 h our before morning meal Orally Once a day Active Atenolol 25 MG 1 tablet Orally Once a day Active Albuterol Active Aleve 220 MG 1 tablet with food o r milk as needed Orally every 12 hrs Active Atorvastatin Calcium 20 MG 1 tablet Oral ly Once a day Active Promethazine HCl 25 MG 1 tablet as neede d Orally every 6 hours; Duration: 30 days 02/08/2025 Active Cefdinir 300 MG as directed Orally Active Ondansetron HCl 4 MG 1 tablet Orally Onc e a day Active Social History Tobacco Use: Social History Observation Description Date Details (start date - stop date) Never Smoker NA - NA Tobacco Control (Standard) Question Answer Notes Tobacco use: Nonsmoker AUDIT-C (Standard) Question Answer Notes Did you have a drink containing alcohol in the p ast year? No Points 0 Interpretation Negative Problems Problem Type SNOMED Code ICD Code Onset Dates Problem Status W/U Status Risk Notes Problem Kidney stone (62304446) Calculus of right kidney (N20.0) Active confirmed Problem Advanced age (69438301) Advanced age (R54) Active confirmed Problem Hydronephrosis with ureteral calculus (N13.2) Active confirmed Vital Signs Heart Rate 69 /min 03/04/2025 Temperature 98.7 degrees Fahrenheit 02/08/2025 Blood pressure diastolic 90 mm Hg 03/04/2025 Height-cm 152.4 cm 03/04/2025 Weight-kg 68.04 kg 03/04/2025 Height 60 in 03/04/2025 Blood pressure systolic 153 mm Hg 03/04/2025 Weight 150 lbs 03/04/2025 BMI 29.29 kg/m2 03/04/2025 Procedures Procedure Date Ordered Date Performed Result Body Sit e Bladder Scan 02/08/2025 02/08/2025 N/A Encounters Encounter Location Date Provider Diagnosis [facility], [facility] [address] [facility] [address] [place] [address] 02/08/2025 LINDA CHAIDEZ Hydronephrosis with ureteral calculus N13.2 ; Right ureteral stone N20.1 ; Hydronephrosis of right kidney N13.30 and Flank pain R10.9 [facility], [facility] [address] [facility] [address] [place] [address] 02/11/2025 NATO BEDOYA Right ureteral stone N20.1 [facility], [facility] [address] [place] [address] 02/25/2025 NATO BEDOYA Right ureteral stone N20.1 [facility], [facility] [address] [place] [address] 03/04/2025 NATO BEDOYA Foreign body in othe r parts of genitourinary tract, initial encounter T19.8XXA ; Hydronephrosis with ureteral calculus N13.2 ; Right ureteral stone N20.1 ; Hydronephrosis of right kidney N13.30 ; Flank pain R10.9 and Nephrolithiasis 592.0 [facility], [facility] [address] [place] [address] 02/08/2025 NATO BEDOYA Pre-op testing Z01.8 18 ; Preop cardiovascular exam Z01.810 and Advanced age R54 [facility] [address] [facility] [address] [place] [address] 02/08/2025 NATO BEDOYA [facility], [facility] [address] [place] [address] 02/08/2025 LINDA CHAIDEZ [facility], [facility] [address] [place] [address] 02/15/2025 NATO BEDOYA Assessments Encounter Date Diagnosis (ICD Code) Assessment Notes Treatment Notes Treatment Clinical Notes Section Notes 03/04/2025 Foreign body in other parts of genitourinary tract, initial encounter (ICD-10 - T19.8XXA) Patient will follow-up in 6 weeks with KUB and Renal US to evaluate for calcifications and occult hydronephrosis respectively. 03/04/2025 Hydronephrosis with ureteral calculus (ICD-10 - N13.2) Patient will follow-up in 6 weeks with KUB and Renal US to evaluate for calcifications and occult hydronephrosis respectively. 02/25/2025 Right ureteral stone (ICD-10 - N20.1) 02/11/2025 Right ureteral stone (ICD-10 - N20.1) 02/08/2025 Pre-op testing (ICD-10 - Z01.818) 02/08/2025 Hydronephrosis with ureteral calculus (ICD-10 - N13.2) 02/08/2025 Right ureteral stone (ICD-10 - N20.1) Pt has a 6mm right UPJ stone with hydronephrosis. Her pain is only marginally controlled this morning and she is having n/v in the clinic, but she has not taken any of her medications. She has zofran and [place] with her. I had her take 8mg of her Zofran and a dose of her [place]. I also gave her a toradol 30mg injection and sent her to [facility] for 500cc NS IVF bolus. Before she left our clinic to go get fluids, she was already feeling improved with resolution of n/v and improved pain. She is nontoxic appearing. 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 Bedoya at [facility]. If she develops intractable pain or n/v after having taken medications, or fever greater than 101, then she is to present to ER. If she passes stone prior to Friday, she will notify us adn we will cancer procedure. 02/08/2025 Hydronephrosis of right kidney (ICD-10 - N13.30) 02/08/2025 Preop cardiovascular exam (ICD-10 - Z01.810) 03/04/2025 Right ureteral stone (ICD-10 - N20.1) Patient will follow-up in 6 weeks with KUB and Renal US to evaluate for calcifications and occult hydronephrosis respectively. 03/04/2025 Hydronephrosis of right kidney (ICD-10 - N13.30) Patient will follow-up in 6 weeks with KUB and Renal US to evaluate for calcifications and occult hydronephrosis respectively. 02/08/2025 Advanced age (ICD-10 - R54) 02/08/2025 Flank pain (ICD-10 - R10.9) 03/04/2025 Flank pain (ICD-10 - R10.9) Patient will follow-up in 6 weeks with KUB and Renal US to evaluate for calcifications and occult hydronephrosis respectively. 03/04/2025 Nephrolithiasis (ICD9-CM - 592.0) Patient will follow-up in 6 weeks with KUB and Renal US to evaluate for calcifications and occult hydronephrosis respectively. Plan Of Treatment Pending Test Test Name Order Date KUB, X-Ray: Abdomen, Kidney, Urete r, bladder 03/04/2025 Electrocardiogram, 12 Lead Tracing-[id number] 02/08/2025 US Renal w/bladder--[id number] 03/04/2025 Next Appt Details Provider Name:LINDA AMAYA, 04/15/2025 11:40:00 AM, [address] [place], [address], Insurance Providers Payer Name Payer Address Payer Phone Subscriber Number Group Number Insured Name Patient Relationship to Insured Coverage Start Date Coverage End Date [employer] Medicare Replacement [address] [address] [place], [place] [id number] Self - patient is the insured Medications Administered Medication Instructions Date of Administration Dosage Notes Ketorolac Tromethamine 02/08/2025 30 mg Pt tolerated well. Medical (General) History Medical History History ICD Code kidney stone low blood pressure anxiety Surgical History Surgery Date(Month/Year) hysterectomy broken arm right R URS stone manip with stent placement Hospitalization History Reason Date(Month/Year) child see surgeries
--- OUTSIDE RECORDS SUMMARY | 2025-03-12 15:40 | XMS_ITS | Encounter Summary ---
Author Organization [facility] Address [address] [place] [address] Care Team Providers Care In Flight Refueling System Repairer Name Role Phone Cj Almanza MD Primary Care Provider [phone] Encounter Details Date Type Department Care Team (Latest Contact Info) Description 07/01/[address] 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
--- OUTSIDE RECORDS SUMMARY | 2025-03-12 15:40 | XMS_ITS | Encounter Summary ---
Author Organization [facility] Address 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
--- OUTSIDE RECORDS SUMMARY | 2025-03-12 15:40 | XMS_ITS | Encounter Summary ---
Author Organization [facility] Address [address] [place] [address] Care Team Providers Care Taxicab Starter Name Role Phone Cj Almanza MD Primary Care Provider [phone] Encounter Details Date Type Department Care Team (Latest Contact Info) Description 06/20/2005 Outpatient Historical [facility] [address] [phone] Chrissie Martell MD [facility] [place], [place] [address] BIPOLAR - MOST RECENT EPISODE UNSPECIFIED (CMS/HCC) (Primary Dx); CLASS MIGRAIN W/O MENTN INTRACTABLE Social History Tobacco Use Types Packs/Day Years Used Date Smoking Tobacco: Never Assessed Comments Unknown Sex and Gender Information Value Date Recorded Sex Assigned at Not on file Legal Sex Female 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
--- OUTSIDE RECORDS SUMMARY | 2025-03-12 15:40 | XMS_ITS | Encounter Summary ---
Author Organization [facility] Address [address] [place] [address] Care Team Providers Care Ordnance Officer Name Role Phone Cj Almanza MD Primary Care Provider [phone] Reason for Referral * Radiology Services (Routine) - Closed Specialty Diagnoses / Procedures Referred By Contac t Referred To Contact Radiology Diagnoses Inconclusive mammography Procedures MAMMO DIAG UNI LEFT 3D DANIKA W OR WO CAD CHG DIAGNOSTIC MAMMOGRAPHY COMPUTER-AIDED DETCJ UNI CHG DIGITAL BREAST TOMOSYNTHESIS UNILATERAL Cj Almanza MD [address] [place] [address] Phone: tel: fax: [facility] [address] [address] Phone: tel: fax: Referral ID Status Reason Start Date Expiration Date Visits Requested Visits Authorized [id number] Closed Performing Department to Schedule 10/12/2020 11/12/2021 1 1 Encounter Details Date Type Department Care Team (Latest Contact Info) Description 10/12/2020 Ancillary Orders [facility] [address] [place] [address] Cj Almanza MD [address] [place] [address] Inconclusive mammography Social History Tobacco [...] on file Legal Sex Female 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 [id number] Dictated by: JOSEPH JUAN on FriNov 10, 2020 1:59:14 PM CDT Transcribed: [facility]FACE, [facility] [place] on FriNov 10, 2020 [...] The patient was given a result/recommendation letter. [id number] Dictated by: JOSEPH JUAN on FriNov 10, [...] Total Score: 2 06/30/19 21 2:51 PM LECTURER IN COMPUTER SCIENCE documented as of this encounter Care Teams Ordnance Officer Relationship Specialty Start Date End Date Cj Almanza MD [address] [place] [address] PCP - General Family Practice 07/13/15 documented as of this encounter
--- OUTSIDE RECORDS SUMMARY | 2025-03-12 15:40 | XMS_ITS | Encounter Summary ---
Author Organization [facility] Address [address] [place] [address] Care Team Providers Care Pulmonary Physical Therapist Name Role Phone Cj Almanza MD Primary Care Provider [phone] Reason for Referral * Radiology Services (Routine) - Closed Specialty Diagnoses / Procedures Referred By Contac t Referred To Contact Radiology Diagnoses Inconclusive mammography Procedures MAMMO BREAST US LEFT LTD Cj Almanza MD [address], [place] [address] Phone: tel: fax: [facility] [address] [address] Phone: tel: fax: Referral ID Status Reason Start Date Expiration Date Visits Requested Visits Authorized [id number] Closed Performing Department to Schedule 11/10/2020 12/11/2021 1 1 Encounter Details Date Type Department Care Team (Latest Contact Info) Description 11/10/2020 Ancillary Orders [facility] [address] [address] Cj Almanza MD [address] [place] [address] Inconclusive mammography Social History Tobacco [...] on file Legal Sex 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 [id number] Dictated by: JOSEPH JUAN on FriNov 10, 2020 1:59:14 PM CDT Transcribed: [facility], [facility] [place] on FriNov 10, [...] The patient was given a result/recommendation letter. [id number] Dictated by: JOSEPH JUAN on FriNov 10, [...] Total Score: 2 06/30/19 21 2:51 PM KELLER MACHINE OPERATOR documented as of this encounter Care Teams Pulmonary Physical Therapist Relationship Specialty Start Date End Date Cj Almanza MD [address] [place] [phone] PCP - General Family Practice 07/13/15 documented as of this encounter
--- OUTSIDE RECORDS SUMMARY | 2025-03-12 15:40 | XMS_ITS | Encounter Summary ---
Author Organization [facility] Address [address] [place] [address] Care Team Providers Care Supervisor Picking Crew Name Role Phone Kamran Chavira MD Primary Care Provider [phone] Reason for Visit * Reason Onset Date Comments Clinical Consult Before Scheduling Cough 02/02/2025 Arms Shortness of Breath 02/02/2025 Chest Pain (Angina) 02/02/2025 Numbness 02/02/2025 Encounter Details Date Type Department Care Team (Late st Contact Info) Description 02/02/2025 Nurse Triage [facility] Medicine [place] [address] [address] Kamran Chavira MD [address] [phone] Social History Tobacco Use Types [...] on file Legal Sex Female 11:33 AM STEWARD/STEWARDESS WINE Gender Identity Not on file Sexual Orientation [...] - 02/02/2025 9:17 AM CDT Copied from [facility] #[id number]. Topic: Symptomatic Care >> Feb 02, 2025 9:11 AM Safia Randolph wrote: Has this patient seen any provider (current or former) at the requested clinic in the past? Yes, Select the appropriate age range and symptom Patient has symptoms and is seeking care. Caller Name: Glendy Callback Number: [phone] Call Notes: Patient said she has the [...] the patient [facility]when [facility]. documented in this encounter Plan of Treatment Not on file documented as of this encounter Visit Diagnoses Not on filedocumented in this encounter Additional Health Concerns Assessment Noted Time PHQ-9 Depression Total Score: 3 04/12/20 24 1:41 PM STEWARD/STEWARDESS WINE documented as of this encounter Care Teams Supervisor Picking Crew Relationship Specialty Start Date End Date Kamran Chavira MD [address] [place] [phone] PCP - General Family Practice 09/05/23 documented as of this encounter
--- OUTSIDE RECORDS SUMMARY | 2025-03-12 15:40 | XMS_ITS | Encounter Summary ---
Author Organization [facility] Address [address] [place] [address] Care Team Providers Care Policewoman Name Role Phone Cj Almanza MD Primary Care Provider [phone] Encounter Details Date Type Department Care Team (Latest Contact Info) Description 08/20/2005 Outpatient Historical [facility] 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
--- OUTSIDE RECORDS SUMMARY | 2025-03-12 15:40 | XMS_ITS | Encounter Summary ---
Author Organization [facility] Address [address] [place] [address] Care Team Providers Care Record Searcher Name Role Phone Cj Almanza MD Primary Care Provider [phone] Encounter Details Date Type Department Care Team (Latest Contact Info) Description 11/20/2005 Outpatient Historical [facility] End[facility] [place] [address] [place] [address] Sam Cavazos MD [address] [place] [address] Special Screening for Malignant Neoplasms, Colon (Primary Dx) Social History Tobacco Use Types Packs/Day Years Used Date Smoking Tobacco: Never Assessed Comments Unknown Sex and Gender Information Value Date Recorded Sex Assigned at Not on file Legal Sex Female 4:15 AM ENGAGEMENT DIRECTOR Gender Identity Not on file Sexual Orientation Not on file documented as of this encounter Plan of Treatment Not on file documented as of this encounter Visit Diagnoses Diagnosis Special screening for malignant neoplasms, colon- Primary documented in this encounter Care Teams Record Searcher Relationship Specialty Start Date End Date Cj Almanza MD [address] [address] PCP - General Family Practice 07/13/15 documented as of this encounter
--- OUTSIDE RECORDS SUMMARY | 2025-03-12 15:40 | XMS_ITS | Encounter Summary ---
Author Organization [facility] Address 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
--- OUTSIDE RECORDS SUMMARY | 2025-03-12 15:40 | XMS_ITS | Encounter Summary ---
Author Organization [employer] [facility] Address [address] [place] [address] Care Team Providers Care Tabulating Machine Mechanic Name Role Phone Cj Almanza MD Primary Care Provider [phone] Reason for Referral * Radiology Services (Routine) - Closed Specialty Diagnoses / Procedures Referred By Contac t Referred To Contact Diagnoses Visit for screening mammogram Procedures MAMMO 3D SCREEN BILATERAL MOBILE Lia Naranjo FNP [address] [place] [phone] Phone: tel: fax: Referral ID Status Reason Start Date Expiration Date Visits Re quested Visits Authorized [id number] Closed 09/27/2020 10/28/2021 1 1 Encounter Details Date Type Department Care Team (Latest Contact Info) Description 09/27/2020 Ancillary Orders [facility] [place] [address] [address] Lia Naranjo FNP [address] [place] [phone] Visit for screening mammogram Social History [...] on file Legal Sex Female 4:15 AM CLINIC CLERK Gender Identity Not on file Sexual Orientation [...] Center to schedule the recommended follow-up appointment. [id number] Narrative 10/05/2020 3:17 PM CDT Bilateral screening [...] by the Computer Aided Detection System (CAD), NodeFly ImageChecker, Version 8.3. us Lia Naranjo FIREPOT OPERATOR AND TENDER MAMMO ORDERABLES Final Result documented in this encounter Visit Diagnoses Diagnosis Visit for screening mammogram Other screening mammogram Visit for screening mammogram Other screening mammogram documented in this encounter Additional Health Concerns Assessment Noted Time PHQ-9 Depression Total Score: 2 06/30/19 21 2:51 PM CLINIC CLERK documented as of this encounter Care Teams Tabulating Machine Mechanic Relationship Specialty Start Date End Date Cj Almanza MD [address] [place] [phone] PCP - General Family Practice 07/13/15 documented as of this encounter
--- OUTSIDE RECORDS SUMMARY | 2025-03-12 15:40 | XMS_ITS | Encounter Summary ---
Author Organization [facility] Address [address] [place] [address] Care Team Providers Care Security And Compliance Analyst Name Role Phone Cj Almanza MD Primary Care Provider [phone] Encounter Details Date Type Department Care Team (Late st Contact Info) Description 08/20/[address] 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
--- OUTSIDE RECORDS SUMMARY | 2025-03-12 15:40 | XMS_ITS | Clinical Summary ---
Author Organization [facility] Address [address] [facility] [place] [address] Care Team Providers Care Insurance Claim Approver Name Role Phone Kamran Chavira MD Primary Care Provider [phone] Allergies Active Allergy Reactions Criticality Noted Date Comments Codeine Anaphylaxis,Other (See Comments) High 11/2010 Topiramate Hallucination Low 02/24/2018 Medications Cetirizine 10 mg Capsule Take 1 Capsule by mouth daily. Active meclizine (ANTIVERT) 25 mg tabletIndications :Dizziness Take 1 Tablet (25 mg) by mouth 3 times daily as needed for Dizziness. 30 Tablet 03/05/20 23 Active Additional Information Patient not taking.Reported on 02/02/2025 mupirocin (BACTROBAN) 2 % OintmentIndicatio ns:Folliculitis Apply to affected area daily. 30 Gram 2 01/05/20 24 Active Additional Information Patient not taking.Reported on 02/02/2025 OLANZapine (ZyPREXA ZYDIS) 10 mg Tablet, Rapid Dissolve Place 1 Tablet (10 mg) inside cheek daily at bedtime. 30 Tablet 1 03/22/20 24 Active Additional Information Patient not taking.Reported on 02/02/2025 omeprazole (PriLOSEC) 40 mg Capsule, Delayed Release(E.C.)Radha cations:Cough, unspecified type Take 1 Capsule (40 mg) by mouth daily. 90 Capsule 3 05/06/20 24 Active methylPREDNISolon e (MEDROL DOSPACK) 4 mg Tablets, Dose PackIndications:A cute bronchitis, unspecified organism As directed 21 Tablet 07/09/19 Active Additional Information Patient not taking.Reported on 02/02/2025 atenoloL (TENORMIN) 25 mg tablet TAKE 1 TABLET TWICE DAILY 180 Tablet 3 07/19/19 25 Active Additional Information Patient not taking.Reported on 02/02/2025 ondansetron (ZOFRAN ODT) 4 mg Tablet, Rapid Dissolve 09/27/19 Active promethazine (PHENERGAN) 25 mg Suppository Insert 1 Suppository (25 mg) by rectum every 12 hours as needed for Nausea/Emesis. 12 Suppository 09/28/19 25 Active loperamide (IMODIUM) 2 mg capsule Take 1 Capsule (2 mg) by mouth every 3 hours as needed for Diarrhea/Loose Stools. 20 Capsule 1 09/28/19 25 Active atorvastatin (LIPITOR) 20 mg tabletIndications :Mixed hyperlipidemia Take 1 Tablet (20 mg) by mouth daily. 100 Tablet 3 01/01/20 25 Active Drtkyemsv-YD-Rmid gaxiola-Guaifen (Tylenol Cold and Flu Severe) 1-89-407-200 mg/15 mL Liquid Take 30 mL by mouth every 6 hours as needed. Active naproxen sodium (ALEVE) 220 mg Tablet Take 220 mg by mouth every 8 hours as needed for Pain, Moderate or Pain. Active Phenylephrine-DM- Acetaminophen (Severe Cold and Flu-Day, DM,) 5-10-325 mg/15 mL Liquid Take 30 mL by mouth every 4 hours as needed for Other (See Comment) (cough/chest congestion). Active fluticasone propionate (FLONASE) 50 mcg/spray [place], Suspension nasal inhalerIndication s:Non-seasonal allergic rhinitis due to other allergic trigger Administer 2 Sprays in each nostril daily. 16 Gram 5 02/03/20 25 Active albuterol sulfate HFA 90 mcg/actuation aerosol inhaler Take 2 Puffs by inhalation every 6 hours as needed for Shortness of Breath. 8.5 Gram 02/03/20 25 Active ALPRAZolam (XANAX) 0.25 mg tabletIndications :Bipolar affective disorder, current episode hypomanic (CMS/HCC) TAKE 1 TABLET THREE TIMES DAILY NEEDED FOR ANXIETY 90 Tablet 5 02/25/20 25 Active ALPRAZolam (XANAX) 0.25 mg tabletIndications :Bipolar affective disorder, current episode hypomanic (CMS/HCC) TAKE 1 TABLET THREE TIMES DAILY NEEDED FOR ANXIETY 180 Tablet 1 09/08/19 25 025 Arleen villalobos(Reo rder) Active Problems Problem Noted Date Diagnosed Date Lactose intolerance 08/29/2021 Mixed hyperlipidemia 09/16/2020 Generalized anxiety disorder 08/03/2020 Migraine 09/24/2011 Bipolar affective disorder, currently depressed, moderate 07/02/2010 Action tremor 07/02/2010 Encounters Date Type Department Care Team Description 03/08/2025 External Device Data [facility] ABSTRACTION Provider, Abstract 03/08/2025 External Device Data [facility] ABSTRACTION Provider, Abstract 03/08/2025 External Device Data [facility] ABSTRACTION Provider, Abstract 02/26/[address] [address] Kamran Chavira MD Cough, unspecified type 02/24/[address] [address] Kamran Chavira MD Bipolar affective disorder, current episode hypomanic ([facility]/HCC) 02/18/[address] [address] Kamran Chavira MD Cough, unspecified type 02/14/[address] [address] Kamran Chavira MD Patient Communication 02/08/2025 External Device Data [facility] ABSTRACTION Provider, Abstract 02/02/2025 11:20 AM CDT Office Visit [address] [phone] Amirah Thompson FNP Upper respiratory tract infection, unspecified type (Primary Dx); Non-seasonal allergic rhinitis due to other allergic trigger; Encounter for colorectal cancer screening 02/02/2025 Nurse Triage [address] [address] Kamran Chavira MD 02/01/2025 External Device Data [facility] ABSTRACTION Provider, Abstract 12/29/2024 External Device Data [facility] ABSTRACTION Provider, Abstract 12/29/[address] [address] Kamran Chavira MD Mixed hyperlipidemia (Primary Dx) 12/28/2024 External Device Data [facility] ABSTRACTION Provider, Abstract from Last 3 Months Immunizations Immunization Administration Dates Next Due (ADACEL/BOOSTRIX)(10 YR UP) TDAP VACCINE, 0.5ML, IM 04/25/2017 (CHARI) COVID-19 VACCINE - EMERGENCY USE AUTHORIZATION, AD26,COV2S(PF) 0.5 ML IM SUSP 09/29/2020 (PREVNAR 20)(6 WKS UP) PNEUM OCOCCAL CONJUGATE VACCINE 20-VALENT (PCV20), POLYSACCHARIDE [id number] CONJUGATE, ADJUVANT 0.5 ML (PF) IM 09/05/2023 [...] on file Legal Sex Female 11:33 AM STAFFING PROGRAM MANAGER Gender Identity Not on file Sexual [...] 11/11/2022, 11/10/2020, Additional history exists Medicare Advantage (MD) Preventative Visit/Annual Wellness Visit 05/26/2024 04/12/2024, 09/05/2023, 03/05/2023, Additional history exists INFLUENZA VACCINE (#1) 2024 , 04/11/2021, 04/11/2021, Additional history exists COVID-19 Vaccine (2023- 5 season) 2025 03/02/2024, 10/19/2021, 04/11/2021, Additional [...] PM CDT) HEMOGLOBIN A1C 6.5(H) <5.7 % [facility] Comment: For someone without known diabetes, [...] children. ESTIMATED AVERAGE GLUCOSE (MG/DL) 140 mg/dL [facility] ESTIMATED AVERAGE GLUCOSE (MMOL/L) 7.7 mmol/L [facility] Comment: Test Performed at: [facility] [address] [place] [address] Cookie Manning MD Blood 09/08/2024 1:51 PM CDT 09/08/2024 1:52 PM CDT Trisha Kurtz JAVA DEVELOPER CHEMISTRY ORDERABLES Lynne l Result [facility] [phone] [id number] [place] [address] [place] [address] * OCCULT BLOOD IMMUNOASSAY, COLORECTAL SCREEN (04/15/2024 12:00 AM STAFFING PROGRAM MANAGER) Pathologist [facility] FECAL GLOBIN SEE NOTE [facility] Comment: FECAL GLOBIN BY IMMUNOCHEMISTRY Micro Number: [id number] Test Status: Final Specimen Source: Stool Specimen Quality: Adequate Fecal Globin: Not Detected Test Performed at: [facility] [address] [place] [address] Cookie Manning MD Stool STOOL SPECIMEN / Unknown 04/15/2024 04/20/2024 10:42 AM STAFFING PROGRAM MANAGER us Kamran Chavira MD BODY FLUIDS AND STOOLS Final Res ult [facility] [phone] [facility] [address] [place] [address] * MAMMO DIAG BILAT 3D DANIKA W OR WO CAD (11/11/2022 2:50 PM CDT) Anatomical Region Laterality Modality Breast Bilateral Mammography 11/11/2022 2:27 PM CDT Impressions 11/12/2022 9:34 AM CDT IMPRESSION: 1. No imaging evidence of malignancy. The patient was given verbal and written results and recommendations by the technologist. BI-RADS ASSESSMENT: 2 - Benign RECOMMENDATION: Routine annual screening mammogram in 1 year. [id number] Narrative 11/12/2022 9:34 AM CDT EXAM: MAMMO [...] Routine annual screening mammogram in 1 year. [id number] Cj Almanza MD MAMMO ORDERABLES Final Result [...] clinical management available online at [email or web address] Enter MedWhat for Select DXA and the Femoral Neck [...] clinical management available online at [email or web address] Enter MedWhat for Select DXA and the Femoral Neck BMD value. Cj Almanza MD DIAGNOSTIC IMAGING ORDERABLES F inal Result from Last 3 Months or Most Recently Relevant to Health Maintenance Insurance [facility] Advance Directives For more information, please contact: [phone] Documents on File Type Date Recorded Patient Shoulder Puncher Expl anation Advance Directive POA 01/05/2024 1:00 PM A dvance Directive POA - Advance Directive POA 02/29/2020 3:19 PM A dvance Directive POA Care Teams Insurance Claim Approver Relationship Specialty Start Date End Date Kamran Chavira MD [address] [place] [phone] PCP - General Family Practice 09/05/23
--- OUTSIDE RECORDS SUMMARY | 2025-03-12 15:41 | XMS_ITS | Patient Health Record ---
Author Organization [facility] Address [address] [place] [address] Care Team Providers Care Rn Ent Name Role Phone VANI SNOW Primary Care Provider Fiorella Raygoza [phone] Reason For Referral No Information Vital Signs Heart Rate 69 /min 02/08/2025 Blood pressure diastolic 62 mm Hg 02/08/2025 Oximetry 95 % 02/08/2025 Blood pressure systolic 108 mm Hg 02/08/2025 Encounters Encounter Location Date Provider Diagnosis [facility] [address] [place] [address], [place] [address] 02/08/2025 Fiorella Duncan Nausea and vomiting in adult R11.2 and Acute dehydration E86.0 Assessments Encounter Date Diagnosis (ICD Code) Assessment Notes Treatment Notes Treatment Clinical Notes Section Notes 02/08/2025 Nausea and vomiting in adult (ICD-10 - R11.2) 02/08/2025 Acute dehydration (ICD-10 - E86.0) Plan Of Treatment No Information Insurance Providers Payer Name Payer Address Payer Phone Subscriber Number Group Number Insured Name Patient Relationship to Insured Coverage Start Date Coverage End Date [employer] Medicare Replacement [address] [address] [place] [address] [id number] Glendy Ellison Self - patient is the insured
--- OUTSIDE RECORDS SUMMARY | 2025-03-12 15:41 | XMS_ITS | Encounter Summary ---
Author Organization [facility] Address [address] [place] [address] Care Team Providers Care Breastfeeding Peer Counselor Name Role Phone Cj Almanza MD Primary Care Provider [phone] Encounter Details Date Type Department Care Team (Latest Contact Info) Description 07/04/2005 Outpatient Historical [facility] [address] [place] [phone] Chrissie Martell MD [facility] [place], [place] [address] Pure hypercholesterolem (Primary Dx); BIPOLAR - MOST RECENT EPISODE UNSPECIFIED (CMS/HCC); ABNORMAL GLANDULAR PAP SMEAR OF CERVIX Social History Tobacco Use Types Packs/Day Years Used Date Smoking Tobacco: Never Assessed Comments Unknown Sex and Gender Information Value Date Recorded Sex Assigned at Not on file Legal Sex Female 4:15 AM RESEARCH SPECIALIST Gender Identity Not on file Sexual [...] cervix documented in this encounter Care Teams Breastfeeding Peer Counselor Relationship Specialty Start Date End Date Cj Almanza MD [address] [place] [phone] PCP - General Family Practice 07/13/15 documented as of this encounter
--- OUTSIDE RECORDS SUMMARY | 2025-03-12 15:41 | XMS_ITS | Encounter Summary ---
Author Organization [facility] Address [address] [place] [address] Care Team Providers Care Leather Leveler Name Role Phone Cj Almanza MD Primary Care Provider [phone] Encounter Details Date Type Department Care Team (Latest Contact Info) Description 07/04/2005 Outpatient Historical [facility] [address] [place] [phone] Chrissie Martell MD [facility] [place], [place] [phone] ROUTINE PROOF MACHINE OPERATOR EXAMINATION (Primary Dx) Social History Tobacco Use Types Packs/Day Years Used Date Smoking Tobacco: Never Assessed Comments Unknown Sex and Gender Information Value Date Recorded Sex Assigned at Not on file Legal Sex Female 4:15 AM RIB PULLER Gender Identity Not on file Sexual Orientation Not on file documented as of this encounter Plan of Treatment Not on file documented as of this encounter Visit Diagnoses Diagnosis Routine gynecological examination- Primary documented in this encounter Care Teams Leather Leveler Relationship Specialty Start Date End Date Cj Almanza MD [address] [phone] PCP - General Family Practice 07/13/15 documented as of this encounter
--- NOTE | 2025-03-12 15:52 | CTR_ITS ---
PROCEDURE INFORMATION: Exam: CT Head Without Contrast Exam date and time: 03/12/2025 4:00 PM Age: 69 years old Clinical indication: Injury or trauma; Fall; Blunt trauma (contusions or hematomas); Additional info: Fall, head injury TECHNIQUE: Imaging protocol: Computed tomography of the head without contrast. Radiation optimization: All CT scans at this facility use at least one of these dose optimization techniques: automated exposure control; mA and/or kV adjustment per patient size (includes targeted exams where dose is matched to clinical indication); or iterative reconstruction. COMPARISON: CT head wo con* [id number] 09/26/2024 3:55 AM RADIATION DOSE METRICS: Total DLP (mGy-cm): 1113.2 FINDINGS: Brain: Normal. No hemorrhage. Unremarkable white matter. No mass effect. Cerebral ventricles: No ventriculomegaly. Paranasal sinuses: Visualized sinuses are unremarkable. No fluid levels. Mastoid air cells: Visualized mastoid air cells are well aerated. Bones: Unremarkable. No acute fracture. Soft tissues: Unremarkable. CT/CT head wo con* [id number] IMPRESSION: No acute intracranial abnormality.
--- NOTE | 2025-03-12 15:52 | CTR_ITS ---
PROCEDURE INFORMATION: Exam: CT Maxillofacial Without Contrast Exam date and time: 03/12/2025 4:00 PM Age: 69 years old Clinical indication: Injury or trauma; Fall; Blunt trauma (contusions or hematomas); Forehead and ocular (eye or eyeball); Right; Additional info: Trauamatic facial pain TECHNIQUE: Imaging protocol: Computed tomography of the face without contrast. Radiation optimization: All CT scans at this facility use at least one of these dose optimization techniques: automated exposure control; mA and/or kV adjustment per patient size (includes targeted exams where dose is matched to clinical indication); or iterative reconstruction. COMPARISON: CT head wo con* [id number] 09/26/2024 3:55 AM RADIATION DOSE METRICS: Total DLP (mGy-cm): 560 FINDINGS: Paranasal sinuses: No air-fluid levels. Orbital cavities: Orbits are normal. Globes are unremarkable. Bones: No acute fracture. Soft tissues: Unremarkable. CT/CT facial bones wo con* [id number] IMPRESSION: No acute findings.
--- NOTE | 2025-03-12 16:41 | W.ED.FALL ---
HPI - Fall General: Chief Complaint: Fall Stated Complaint: fall, hit head Time Seen by Provider: 03/12/25 16:41 History of Present Illness: 69-year-old female who tripped and fell striking her face. She has an abrasion above her left eye. She does not know if she lost consciousness. She said she laid there for a minute. No anticoagulation. She has some facial pain. No headache. No altered mental status. No nausea or vomiting. No chest pain. No extremity injuries Related Data Previous Rx's ?Medication ?Instructions ?Recorded albuterol sulfate 90 mcg/actuation 1 inh inhalation Q6H PRN shortness 02/19/21 aerosol inhaler of breath or wheezing #8.5 grams ondansetron 4 mg disintegrating 4 mg PO Q6H PRN nausea and 09/26/24 tablet vomiting #14 tabs cefdinir 300 mg capsule 300 mg PO BID #14 caps 02/07/25 hydrocodone 5 mg-acetaminophen 325 1 tab PO Q8H PRN pain #7 tabs 02/07/25 mg tablet ondansetron 4 mg disintegrating 4 mg PO Q6H PRN nausea and 02/07/25 tablet vomiting #14 tabs tamsulosin 0.4 mg capsule (Flomax) 0.4 mg PO DAILY #10 caps 02/07/25 Allergies Allergy/AdvReac Type Severity Reaction Status Date / Time codeine Allergy ALGY-Anaphy Verified 01/12/20 11:05 laxis Review of Systems Narrative: Constitutional symptoms: Negative except as documented in HPI. Skin symptoms: Negative except as documented in HPI. Eye symptoms: Negative except as documented in HPI. ENMT symptoms: Negative except as documented in HPI. Respiratory symptoms: Negative except as documented in HPI. Cardiovascular symptoms: Negative except as documented in HPI. Gastrointestinal symptoms: Negative except as documented in HPI. Genitourinary symptoms: Negative except as documented in HPI. Musculoskeletal symptoms: Negative except as documented in HPI. Neurologic symptoms: Negative except as documented in HPI. Psychiatric symptoms: Negative except as documented in HPI. Endocrine symptoms: Negative except as documented in HPI. Physical Exam Narrative: EXAM NARRATIVE: General: Alert, no acute distress. Skin: Warm, dry. Head: Normocephalic, small laceration above left eye. Neck: Supple, trachea midline. Eye: Extraocular movements are intact. Ears, nose, mouth and throat: mucosa moist. Cardiovascular: Regular, Normal peripheral perfusion. Respiratory: Lungs are clear to auscultation, respirations are non-labored, breath sounds are equal, Symmetrical chest wall expansion. Gastrointestinal: Soft, Nontender, Non distended Musculoskeletal: Normal ROM, no deformity. Neurological: Alert and oriented, No focal neurological deficit observed. Psychiatric: Cooperative, appropriate mood & affect. Course Vital Signs: Vital signs: Vital Signs Temperature 98.0 F 03/12/25 15:39 Pulse Rate 54 L 03/12/25 15:39 Respiratory Rate 18 03/12/25 15:39 Blood Pressure 139/79 03/12/25 15:39 Pulse Oximetry 96 03/12/25 15:39 Oxygen Delivery Me thod Room Air 03/12/25 15:39 MDM - Fall Medical Decision Making Medical decision making: Differential diagnosis including but not limited to and based on the above HPI, review of systems and physical exam: patient with fall and head injury. Subdural hematoma, subarachnoid hemorrhage, concussion, skull fracture. Orders placed to evaluate differential diagnosis based on the above differential, HPI and physical exam CT scan of the head was ordered. CT head: No acute intracranial process. No intracranial hemorrhage, no evidence of infarct. No evidence of acute fracture. This was reviewed and interpreted by myself the emergency room physician. I also reviewed the radiology report. CT of the facial bones: No acute process. This was reviewed and interpreted by myself the emergency room physician. I also reviewed the radiology report. I reviewed the patient's medical record. Reexamination: Patient remained stable. No increased work of breathing. No altered mental status. No focal motor deficits. Assessment and plan: Head injury Fall Eyebrow laceration ? Steri-Strips and tetanus update - Discharged home - Discussed plan with patient. Answered any questions. - Evaluation and treatment of this problem were appropriate in the emergency setting. Lab Data Radiology Impressions Face CT 03/12/25 15:52 IMPRESSION: No acute findings. Head CT 03/12/25 15:52 IMPRESSION: No acute intracranial abnormality. All radiology interpretation(s) finalized by discharge Discharge Plan Discharge Patient Disposition: Home Clinical Impression: Head injury, Eyebrow laceration Condition: Stable Prescriptions: No Action albuterol sulfate 90 mcg/actuation HFA aerosol inhaler 1 inh inhalation Q6H PRN (Reason: shortness of breath or wheezing) Qty: 8.5 0RF hydrocodone-acetaminophen 5-325 mg tablet 1 tab PO Q8H PRN (Reason: pain) Qty: 7 0RF ondansetron 4 mg tablet,disintegrating 4 mg PO Q6H PRN (Reason: nausea and vomiting) Qty: 14 0RF tamsulosin [Flomax] 0.4 mg capsule 0.4 mg PO DAILY Qty: 10 0RF cefdinir 300 mg capsule 300 mg PO BID Qty: 14 0RF ondansetron 4 mg tablet,disintegrating 4 mg PO Q6H PRN (Reason: nausea and vomiting) Qty: 14 0RF Discharge Orders: Discharge ED (Routine); Ordered 03/12/25 Ordered By: Jami Hobson Discharge Diet: Usual diet Discharge Activity: Increase activity as tolerated Patient Instructions: Head Injury (ED), Opioid Safety, Pain Management, Patient Portal & Niko Instructions Activity Restrictions/Additional Instructions: Thank you for choosing [facility] for your healthcare needs today. You have been screened and evaluated and felt safe for discharge. Health conditions do change or evolve sometimes and as such it is important that you follow up with your Primary Doctor to be re checked, 3-5 days is a general good time frame for follow up. You are always welcome to return to the ED for re assessment if your symptoms are worsening or you have new concerns Print Language: Libyan Coding Level of Care Code ED Genetics Physician for Radha Domingo
[2025-03-12 17:06] VITALS: BP 133/79; PULSE 47; O2SAT 98
[2025-03-12] MEDS: tetanus-dipt-pertussis 0.5 mL SDV IM (17:20)
== END 2025-03-12 17:24 | disposition home or self-care (01) ==
PROVIDERS: Emergency Provider Emergency Medicine
DX: S09.90XA Unspecified injury of head, initial encounter (principal); S01.112A Laceration without foreign body of left eyelid and periocular area, initial encounter; W01.0XXA Fall on same level from slipping, tripping and stumbling without subsequent striking against object, initial encounter
CPT/HCPCS: 70450; 70486; 90715; 99284